=== PATIENT | male | born 1945 | race Caucasian/White ===

== ENCOUNTER → 2018-03-11 07:04 | Outpatient (CLI) | payer MEDICARE, MEDICAID, SELFPAY ==
[2018-03-11 09:07] LABS: Anion Gap 9.3 mmol/L (3-11); CO2 29.7 mmol/L (21.0-32.0); Chloride 105 mmol/L (98-107); Glucose 94 mg/dL (70-100); Potassium 4.8 mmol/L (3.5-5.1); Sodium 144 mmol/L (136-145); Vitamin B12 351 pg/mL (193-986)
[2018-03-14 10:33] LABS: Lyme Ab w Rflx to Lyme Confirm Negative
== END ==
PROVIDERS: PCP General Practice; Visit Provider General Practice
DX: R25.2 Cramp and spasm (principal); G47.62 Sleep related leg cramps; G62.89 Other specified polyneuropathies
CPT/HCPCS: 36415; 80051; 82947; 82607; 83735; 86618

== ENCOUNTER 2019-04-11 12:55 | Outpatient (CLI) | payer MEDICARE, MEDICAID, SELFPAY ==
[2019-04-11 13:39] LABS: Bilirubin Negative (Negative); Blood Negative (Negative); Clarity Clear (Clear); Glucose Negative (Negative); Ketones Negative (Negative); Leukocyte Esterase Negative (Negative); Nitrite Negative (Negative); Specific Gravity 1.015 (1.005-1.025); Urobilinogen 0.2 EU/dL (Up TO 0.2); pH 6.5 (5-8)
== END 2019-04-11 13:15 ==
PROVIDERS: PCP General Practice; Visit Provider General Practice
DX: R30.0 Dysuria (principal)
CPT/HCPCS: 81003

== ENCOUNTER 2020-01-22 07:56 | Emergency (ER) | payer MEDICARE, MEDICAID, SELFPAY ==
[2020-01-22 08:04] VITALS: BP 126/73; PULSE 66; RESP 16; TEMP 36.4; O2SAT 98
--- NOTE | 2020-01-22 08:42 | W.ED.GENAD ---
Discharge Plan Disposition Patient Disposition: HOME Condition: Stable Discharge Details Chief Complaint: RashLesion Clinical Impression: Tick bite, Hematuria, Edema, peripheral Primary Care Provider: Unknown,Unknown ED Provider: Micki Rosenthal Home Meds and New Rx's Prescriptions: Continued albuterol sulfate 8.5 GM HFA aerosol inhaler 2 puff Inhalation PRN PRNRF: 0 Atrovent HFA 1 PUFF HFA aerosol inhaler 2 puff Inhalation PRN PRNRF: 0 Vitamin B-12 1,000 MCG/ML drops RF: 0 Fd-D7-dbf-mfhq-bcm-bdis-bor 1 EACH tablet 1 ea PO DAILY Qty: 100 RF: 0 Trelegy Ellipta 100-62.5-25 mcg blister with device INHALATION RF: 0 Discharge Instructions Instructions: Tick Bite (ED), Hematuria (ED), Leg Edema (ED) Additional Instructions: Please return immediately to the emergency department if you develop any new or worsening symptoms, if your condition does not improve as expected, or if you become otherwise concerned. It is extremely important that you call soon as possible to make an appointment to be seen in follow-up for this visit by your primary care doctor. Discharge Data Discharge Date/Time-TO BE ENTERED AT DEPARTURE: 01/22/20 09:30 Medical Decision Making Yoshi Turcios is a 74 y/o man who presented to the emergency department for tick bites. On exam Pt is well and non-toxic appearing. small area of erythema right clavicle at site of one tick bite, 3cm target lesion left post calf at site of other tick bite. No foreign bodies, no induration, no TTP, no other rash. Mild lateral TTP right knee, otherwise normal knee exam. Concern for exposure to tick borne illness. Unclear etiology of knee pain, possibly lyme vs arthritis vs other. Unclear etiology of mild intermittent hematuria in setting of no dysuria, fever, abdominal pain, flank pain. Possible UTI vs neoplasm vs other. Exam/hx not c/w sepsis, septic arthritis, ureterolithiasis, other acute emergent life threatening process. Target lesion at site of tick bite unlikely to represent lyme given timing, however concern that Pt have contracted lyme/other tick borne illness from multiple other tick bites. Will hold prophylaxis at this time, send tick panel. Plan for screening labs and EKG. EKG and labs non-actionable. UA borderline, without overt UTI symptoms will hold abx pending culture. I had a lengthy discussion with Pt re: in case of negative tick panel, Pt should be retested in 2-3 weeks given multiple new tick bites in last few days. I had a lengthy discussion with Patient regarding return to emergency department precautions, home care, and importance of outpatient follow-up for hematuria, tick bites, peripheral edema, knee pain, and follow-up on eval performed today. Pt verbalizes understanding of the plan and is amenable. Patient discharged to home with clear plan for outpatient follow-up. All questions were answered. Disposition decision was made weighing the risks and benefits of hospitalization versus outpatient treatment, the risk for further decompensation, and the patient's wishes. Medical Records Medical records reviewed: Yes I reviewed the patient's medical records. Lab Data Lab results reviewed: Yes I reviewed the patient's lab results. Labs: 01/22/20 08:45 Urine - Reflex from Ua Urine Culture - Preliminary Laboratory Tests Range/Units 01/22/20 01/22/20 01/22/20 08:40 08:40 08:40 WBC (4.4-10.8) k/cumm 8.08 RBC (4.50-6.00) m/cumm 5.26 Hgb (13.5-17.5) g/dL 15.8 Hct (40.0-50.0) % 48.5 MCV (80-95) fL 92.2 MCH (27.0-33.0) pg 30.0 MCHC (32.0-36.0) g/dL 32.6 RDW (11.8-14.1) % 13.7 Plt Count (130-400) x1000/uL 298 MPV (8.0-11.0) fL 9.5 Immature Gran % % 0.1 Neutrophils % 58.3 Lymphocytes % 27.2 Monocytes % 9.5 Eosinophils % 3.7 Basophils % 1.2 Absolute Neutrophils (1.2-6.7) k/cumm 4.70 Absolute Lymphocytes (1.2-3.4) k/cumm 2.20 Absolute Monocytes (0.11-0.7) k/cumm 0.77 H Absolute Eosinophils (0.0-0.7) k/cumm 0.30 Absolute Basophils (0.0-0.2) k/cumm 0.10 Sodium (136-145) mmol/L 140 Potassium (3.5-5.1) mmol/L 4.4 Chloride (98-107) mmol/L 105 Carbon Dioxide (21.0-32.0) mmol/L 27.3 Anion Gap (3-11) mmol/L 7.7 BUN (7-18) mg/dL 16 Creatinine (0.70-1.30) mg/dL 1.06 Estimated GFR/1.73 m2 (mL/min/1.73m2) >= 60.00 Glucose (74-106) mg/dL 110 H Calcium (8.5-10.1) mg/dL 8.3 L Total Bilirubin (0.2-1.0) mg/dL 0.6 AST (15-37) U/L 29 ALT (16-63) U/L 44 Alkaline Phosphatase (46-116) U/L 110 Total Protein (6.4-8.2) g/dL 7.0 Albumin (3.4-5.0) g/dL 3.9 Urine Color (Yellow) Urine Clarity (Clear) Urine pH (5-8) Ur Specific Cordell (1.005-1.025) Urine Protein (Negative) mg/dL Urine Ketones (Negative) mg/dL Urine Blood (Negative) Urine Nitrite (Negative) Urine Bilirubin (Negative) Urine Urobilinogen (Up TO 0.2) EU/dL Ur Leukocyte Esterase (Negative) Urine RBC (0-2) HPF Urine WBC (0-5) HPF Ur Epithelial Cells (Negative) HPF Urine Crystals (Negative) HPF Urine Bacteria (Negative) HPF Urine Casts (Negative) LPF Urine Mucus (Negative) Ur Culture Indicated? Urine Glucose (Negative) mg/dL Lyme Disease Antibody (Negative) Negative Range/Units 01/22/20 08:45 WBC (4.4-10.8) k/cumm RBC (4.50-6.00) m/cumm Hgb (13.5-17.5) g/dL Hct (40.0-50.0) % MCV (80-95) fL MCH (27.0-33.0) pg MCHC (32.0-36.0) g/dL RDW (11.8-14.1) % Plt Count (130-400) x1000/uL MPV (8.0-11.0) fL Immature Gran % % Neutrophils % Lymphocytes % Monocytes % Eosinophils % Basophils % Absolute Neutrophils (1.2-6.7) k/cumm Absolute Lymphocytes (1.2-3.4) k/cumm Absolute Monocytes (0.11-0.7) k/cumm Absolute Eosinophils (0.0-0.7) k/cumm Absolute Basophils (0.0-0.2) k/cumm Sodium (136-145) mmol/L Potassium (3.5-5.1) mmol/L Chloride (98-107) mmol/L Carbon Dioxide (21.0-32.0) mmol/L Anion Gap (3-11) mmol/L BUN (7-18) mg/dL Creatinine (0.70-1.30) mg/dL Estimated GFR/1.73 m2 (mL/min/1.73m2) Glucose (74-106) mg/dL Calcium (8.5-10.1) mg/dL Total Bilirubin (0.2-1.0) mg/dL AST (15-37) U/L ALT (16-63) U/L Alkaline Phosphatase (46-116) U/L Total Protein (6.4-8.2) g/dL Albumin (3.4-5.0) g/dL Urine Color (Yellow) Yellow Urine Clarity (Clear) Clear Urine pH (5-8) 6.0 Ur Specific Cordell (1.005-1.025) 1.025 Urine Protein (Negative) mg/dL Negative Urine Ketones (Negative) mg/dL Negative Urine Blood (Negative) Trace-intact H Urine Nitrite (Negative) Negative Urine Bilirubin (Negative) Negative Urine Urobilinogen (Up TO 0.2) EU/dL 0.2 Ur Leukocyte Esterase (Negative) Trace H Urine RBC (0-2) HPF 0-2 Urine WBC (0-5) HPF 3-5 Ur Epithelial Cells (Negative) HPF Rare Urine Crystals (Negative) HPF Negative Urine Bacteria (Negative) HPF Rare Urine Casts (Negative) LPF Negative Urine Mucus (Negative) Trace Ur Culture Indicated? Yes Urine Glucose (Negative) mg/dL Negative Lyme Disease Antibody (Negative) ECG Data Attestation: I personally reviewed and interpreted this ECG (s) as follows: Interpretation: EKG shows sinus rhythm at 60, right axis, nonspecific T wave flattening, nondiagnostic EKG HPI General Mode of arrival: ambulatory. Date/Time Provider Initiated Documentation: 01/22/20 08:09. Limitations to Documentation: no limitations. Information obtained by: patient, RN notes reviewed and old records reviewed. HPI Narrative: Yoshi Turcios is a 74-year-old man with a history of COPD presenting to the emergency department with tick bites. Patient is accompanied by his who also provides a history. They report that this morning they noticed take patient's left posterior calf and also over his right collarbone. Patient's reports that she removed both easily. She brings those 2 takes in a cup of alcohol, along with 2 other ticks that she pulled off of the patient recently. Patient reports that he came to the emergency department because he noticed what looked like a bull's-eye rash around that site of the tick bite on his leg. Patient reports that he has no pain other than some right knee pain that has been going on for the last several days and is mild, does not limit his activities. He also reports that he has had swelling of both feet at night over the past few weeks recently and mild hematuria intermittently over the past month. Patient reports that he was told by his PCP that he should be checking his blood sugar, although he is not sure how to do that and does not have a glucometer. He denies any other pain, fevers, cough, shortness of breath, vomiting, diarrhea, other skin rash. Patient reports that he feels generally well in his usual state of health. He has been eating and drinking as usual. Related Data Home Medications Medication Instructions Recorded Confirmed Atrovent HFA 2 puff INHALATION PRN PRN 05/28/13 01/22/20 Vitamin B-12 05/28/13 05/28/13 albuterol sulfate 2 puff INHALATION PRN PRN 05/28/13 01/22/20 Td-F8-xpq-ayzx-yqj-bfad-bor 1 ea PO DAILY #100 tablet 05/29/13 01/22/20 Trelegy Ellipta INHALATION 01/22/20 Previous Rx's Medication Instructions Recorded Do-R4-eue-jdul-ufl-vobb-bor 1 ea PO DAILY #100 tablet 05/29/13 Allergies Allergy/AdvReac Type Severity Reaction Status Date / Time erythromycin base AdvReac Intermediate Nausea Unverified 01/22/20 08:08 [Erythromycin Base] General Stated Complaint: RashLesion ASH: 4 Review of Systems Narrative: Constitutional: denies fevers Eyes: denies eye pain ENT: denies ear pain, dental pain, sore throat Cardiovascular: denies chest pain Respiratory: denies SOB, cough GI: denies abdominal pain, vomiting, diarrhea : denies flank pain MSK: denies back pain, neck pain, myalgias, reports right knee pain Skin: reports leg rash as per HPI Neuro: denies headaches, numbness, weakness PFSH Medical History COPD (chronic obstructive pulmonary disease) Surgical History (Updated 05/18/18 @ 14:36 by [employer] [place]) Colonoscopy - IV Sedation Repair of inguinal hernia Right Social History Smoking/Tobacco Use Status: Current every day Tobacco Type: cigarettes Alcohol Intake: never Drug use: Never Exam Narrative Exam Narrative: Constitutional: well and [id number], pleasant, conversing normally HENT: head atraumatic/normocephalic/normal inspection, mucous membranes moist Eyes: conjunctiva normal, sclera normal, pupils 3mm b/l Neck: no stridor, normal ROM, trachea midline Chest: 1cm area of erythema just superior to mid right clavicle, non-tender, no drainage, no foreign body Resp: normal work of breathing Cardio: normal rate, normal rhythm Skin: warm, dry, normal color, no rash Neuro: alert, not altered, grossly non-focal, normal tone Ext: no edema, no calf TTP, left posterior calf with 3cm target lesion (Pt reports tick was attached at center [facility] when tick was removed). Right knee TTP over lateral aspect of joint, no effusion or overlying skin changes, full ROM, minimally tender in area of pain, no other TTP of knee including popliteal region Psych: normal mood, normal affect, normal behavior Course Vital Signs Vital signs: Vital Signs Temperature 36.4 C L 01/22/20 08:04 Pulse 66 01/22/20 08:04 Respiratory Rate 16 01/22/20 08:04 Blood Pressure 126/73 01/22/20 08:04 Pulse Oximetry 98 01/22/20 08:04 Temperature 36.4 C L 01/22/20 08:04 Temperature Source Skin 01/22/20 08:04 Pulse 66 01/22/20 08:04 Respiratory Rate 16 01/22/20 08:04 Respiratory Effort 01/22/20 08:04 Blood Pressure 126/73 01/22/20 08:04 Blood Pressure Position Sitting 01/22/20 08:04 Pulse Oximetry 98 01/22/20 08:04 Oxygen Delivery Method Room Air 01/22/20 08:04 Oxygen Flow Rate 0 01/22/20 08:04 Pain Level 0 01/22/20 08:04
[2020-01-22 08:57] LABS: Abs Immature Grans 0.01 k/cumm (0.0-0.09); Absolute Monocyte Count 0.77 k/cumm (0.11-0.7); Basophils % 1.2; Eosinophils % 3.7; HCT 48.5 % (40.0-50.0); HGB 15.8 g/dL (13.5-17.5); Immature Grans % 0.1 %; Lymphocytes % 27.2; Mean Corp. HGB Concentration 32.6 g/dL (32.0-36.0); Mean Corpuscular Volume 92.2 fL (80-95); Mean Platelet Volume 9.5 fL (8.0-11.0); Monocytes % 9.5; Neutrophils % 58.3; Platelet Count 298 x1000/uL (130-400); RBC 5.26 m/cumm (4.50-6.00); RBC Distribution Width 13.7 % (11.8-14.1); White Blood Cell Count 8.08 k/cumm (4.4-10.8)
[2020-01-22 08:57] LABS: Bilirubin Negative (Negative); Blood Trace-intact (Negative); Clarity Clear (Clear); Glucose Negative (Negative); Ketones Negative (Negative); Leukocyte Esterase Trace (Negative); Nitrite Negative (Negative); Specific Gravity 1.025 (1.005-1.025); Urobilinogen 0.2 EU/dL (Up TO 0.2)
[2020-01-22 09:09] LABS: ALT 44 U/L (16-63); AST 29 U/L (15-37); Albumin 3.9 g/dL (3.4-5.0); Alkaline Phosphatase 110 U/L (46-116); Anion Gap 7.7 mmol/L (3-11); BUN 16 mg/dL (7-18); Bilirubin, Total 0.6 mg/dL (0.2-1.0); CO2 27.3 mmol/L (21.0-32.0); CREATININE 1.06 mg/dL (0.70-1.30); Calcium 8.3 mg/dL (8.5-10.1); Chloride 105 mmol/L (98-107); Glucose 110 mg/dL (74-106); Potassium 4.4 mmol/L (3.5-5.1); Sodium 140 mmol/L (136-145)
[2020-01-22 09:10] LABS: Bacteria Rare HPF (Negative); C & S Indicated? Yes; Casts Negative LPF (Negative); Crystals Negative HPF (Negative); Epithelial Cells Rare HPF (Negative); Mucus Trace (Negative); RBC 0-2 HPF (0-2)
[2020-01-23 12:09] LABS: Lyme Ab w Rflx to Lyme Confirm Negative (Negative)
[2020-01-23 23:29] LABS: Anaplasma phagocytophilum Negative (Negative); B. miyamotoi PCR Negative (Negative); Babesia divergens/MO-1 Negative (Negative); Babesia duncani Negative (Negative); Babesia microti Negative (Negative); Ehrlichia chaffeensis Negative (Negative); Ehrlichia ewingii/canis Negative (Negative); Ehrlichia muris eauclairensis Negative (Negative)
== END 2020-01-22 09:30 | disposition home or self-care (01) ==
PROVIDERS: Emergency Provider Student in an Organized Health Care Education/Training Program
DX: S80.862A Insect bite (nonvenomous), left lower leg, initial encounter (principal); S10.86XA Insect bite of other specified part of neck, initial encounter; W57.XXXA Bitten or stung by nonvenomous insect and other nonvenomous arthropods, initial encounter; R31.9 Hematuria, unspecified; R60.0 Localized edema; J44.9 Chronic obstructive pulmonary disease, unspecified; F17.210 Nicotine dependence, cigarettes, uncomplicated
CPT/HCPCS: 36415; 80053; 87798; 99284; 81003; 81015; 85025; 86618; 87086

== ENCOUNTER 2020-10-18 12:16 | Emergency (ER) | payer MEDICARE, MEDICAID, SELFPAY ==
[2020-10-18 12:26] VITALS: BP 133/69; PULSE 74; RESP 16; TEMP 36.3; O2SAT 95
--- NOTE | 2020-10-18 12:30 | DI.RAD_ITS ---
EXAM: XR KNEE RT 3V AP,LAT,JARETH CLINICAL HISTORY: one week pain. TECHNIQUE: 2D digital imaging was performed. COMPARISON: No exams were available for comparison FINDINGS: BONES: No acute fracture is present. No bony destructive lesion is seen. Enthesophyte is seen at th e upper pole of the patella. JOINTS: The knee is normally aligned. A moderate-sized joint effusion is seen. Chondrocalcinosis is seen. SOFT TISSUE: Normal. IMPRESSION: Joint effusion.. DATA REPOSITORY: RADIATION DOSE DELIVERED:
--- NOTE | 2020-10-18 12:41 | ED.GENADUL_ITS ---
Discharge Plan Disposition Patient Disposition: HOME Condition: Stable Discharge Details Clinical Impression: Knee pain, right, Arthritis Primary Care Provider: Levar Ring ED Provider: Fredi Ch Home Meds and New Rx's Prescriptions: New prednisone 20 mg tablet 60 mg PO DAILY 5 Days Qty: 15 RF: 0 Continued albuterol sulfate 8.5 GM HFA aerosol inhaler 2 puff Inhalation PRN PRNRF: 0 Atrovent HFA 1 PUFF HFA aerosol inhaler 2 puff Inhalation PRN PRNRF: 0 Vitamin B-12 1,000 MCG/ML drops PO DAILY RF: 0 Wq-P2-dov-bwwc-wwc-gshh-bor 1 EACH tablet 1 ea PO DAILY Qty: 100 RF: 0 Trelegy Ellipta 100-62.5-25 mcg blister with device 1 inh INHALATION DIRECTED RF: 0 Discharge Instructions Instructions: Knee Pain (ED) Additional Instructions: your xray did not show any broken bones you are being treated for arthritis follow up with your primary care provider within 1-2 weeks if pain continues if severe worsening pain, fevers or sprading redness return to the emergency department Medical Decision Making 75 yo male with hx of copd comes in with right knee pain for a week with no falls or other trauma. Denies fevers, chills, calf pain, dyspnea. He has mild swelling of the anterior right knee with no erythema or warmth and full rom of the knee. Has tenderness to the patella, no posterior leg pain, no calf sweling or tenderness with normal distal senation and pulses. Suspect arthritis and less likely sprain, will obtain xray. Exam and history not consistent with septic joint or dvt at this time. xray negative on my read and remains stable no changes on exam. Suspect arthritis, will have him f/u with his pcp and return precautions given radiology read as joint effusion which fits with arthritis, is walking around in no distress and no significant pain. Differential Diagnosis Differential Diagnosis: strain, arthritis, sprain Imaging Data Radiologic Study: Attestation: I personally reviewed and interpreted this imaging study as follows: Imaging: X-Ray Radiologist's impression: joint effusion HPI General Date/Time Provider Initiated Documentation: 10/18/20 12:22 . Limitations to Documentation: no limitations . Information obtained by: patient . History of Present Illness 75 year old M presents to the emergency department with the chief complaint of right knee pain, described as moderate, Patient started experiencing this week(s) (1) and it has been constant. No relieving factors improve symptom(s), No exacerbating factors reported . Patient did receive the following treatments prior to arrival, NSAID Related Data Home Medications Medication Instructions Recorded Confirmed Atrovent HFA 2 puff INHALATION PRN PRN 05/28/13 10/18/20 Vitamin B-12 ml PO DAILY 05/28/13 05/28/13 albuterol sulfate 2 puff INHALATION PRN PRN 05/28/13 10/18/20 Na-K2-zbe-zbey-txx-yarw-bor 1 ea PO DAILY #100 tablet 05/29/13 10/18/20 Trelegy Ellipta 1 inh INHALATION DIRECTED 01/22/20 10/18/20 prednisone 60 mg PO DAILY 5 Days #15 tab 10/18/20 Previous Rx's Medication Instructions Recorded Iw-U9-txk-vayt-wgo-upif-bor 1 ea PO DAILY #100 tablet 05/29/13 prednisone 60 mg PO DAILY 5 Days #15 tab 10/18/20 Allergies Allergy/AdvReac Type Severity Reaction Status Date / Time erythromycin base AdvReac Intermediate Nausea Unverified 10/18/20 12:31 [Erythromycin Base] General Stated Complaint: Orthopedic ASH: 4 Review of Systems All systems reviewed & are unremarkable except as noted in HPI and below Constitutional Constitutional: Denies chills, Denies fever(s) and Denies weakness Cardiovascular Cardiovascular: Denies chest pain and Denies dyspnea Respiratory Respiratory: Denies cough and Denies dyspnea Gastrointestinal Gastrointestinal: Denies abdominal pain, Denies nausea and Denies vomiting Neurologic Neurologic: Denies weakness Psychiatric Psychiatric: Denies depression [facility] Medical History (Updated 10/18/20 @ 13:19 by Fredi Ch MD) COPD (chronic obstructive pulmonary disease) Surgical History (Updated 05/18/18 @ 14:36 by [facility] [place]) Colonoscopy - IV Sedation Repair of inguinal hernia Right Social History Smoking/Tobacco Use Status: Current every day Tobacco Type: cigarettes Smoking risk assessment performed?: Yes Alcohol Intake: never Drug use: Never Do you feel safe at home: Yes Do you feel safe in your relationship?: Yes Additional Social history: has caregiver does not leave the house Exam Const General: no acute distress Orientation: alert HENMT Head: normal to inspection Ears: external ears normal General nose exam: external nose normal Mouth: moist mucous membranes Eyes General: appearance normal, both eyes and all related structures Neck Neck: normal visual inspection Resp Effort & Inspection: normal respiratory effort and able to speak in complete sentences Cardio Rate: regular rate Skin General skin exam: no rashes or lesions noted Neuro General: patient alert and patient oriented x3 Extrem General: full ROM and capillary refill normal Psych Mental Status: mental status grossly normal Course Vital Signs Vital signs: Vital Signs Temperature 36.3 C L 10/18/20 12:26 Pulse 74 10/18/20 12:26 Respiratory Rate 16 10/18/20 12:26 Blood Pressure 133/69 10/18/20 12:26 Pulse Oximetry 95 10/18/20 12:26 Temperature 36.3 C L 10/18/20 12:26 Temperature Source Skin 10/18/20 12:26 Pulse 74 10/18/20 12:26 Respiratory Rate 16 10/18/20 12:26 Respiratory Effort 10/18/20 12:34 Blood Pressure 133/69 10/18/20 12:26 Blood Pressure Position Sitting 10/18/20 12:26 Pulse Oximetry 95 10/18/20 12:26 Oxygen Delivery Method Room Air 10/18/20 12:26 Oxygen Flow Rate 0 10/18/20 12:26 Pain Level 8 10/18/20 12:26 Comment 10/18/20 12:26
== END 2020-10-18 13:15 | disposition home or self-care (01) ==
PROVIDERS: Emergency Provider Emergency Medicine; PCP Psychiatry & Neurology Neurology
DX: M25.561 Pain in right knee (principal); M17.11 Unilateral primary osteoarthritis, right knee
CPT/HCPCS: 73562; 99283

== ENCOUNTER → 2023-04-21 13:48 | Outpatient (BNVA) | payer MEDICARE, MEDICAID, SELFPAY | PROVIDERS: PCP Psychiatry & Neurology Neurology; Referring Provider Podiatrist; Visit Provider Physical Therapy Assistant | DX: I73.9 Peripheral vascular disease, unspecified (principal) | CPT/HCPCS: 93922 ==

== ENCOUNTER 2023-05-08 09:41 | Emergency (ER) | payer MEDICARE, MEDICAID, SELFPAY ==
[2023-05-08 09:44] VITALS: BP 153/73; PULSE 89; RESP 18; TEMP 36.9; O2SAT 94
--- NOTE | 2023-05-08 10:15 | W.ED.GENAD ---
Discharge Plan Disposition Patient Disposition: Home Discharge Details Clinical Impression: COVID Primary Care Provider: Joshua Dumont ED Provider: Wolfgang Gallardo Home Meds and New Rx's Prescriptions: New benzonatate 100 mg capsule 100 mg PO TID PRN (Reason: cough) Qty: 30 0RF Continued calcium carbonate [Calcium 500] 500 mg calcium (1,250 mg) tablet,chewable 500 mg PO DAILY ascorbic acid (vitamin C) 500 mg capsule 500 mg PO DAILY cholecalciferol (vitamin D3) 25 mcg (1,000 unit) capsule 25 mcg PO DAILY ketoconazole 2 % cream 1 applic topical DAILY 90 Days Qty: 60 0RF Rx Instructions: Apply to toenails once daily albuterol sulfate 8.5 GM HFA aerosol inhaler 2 puff Inhalation PRN PRN Patient Comments: I take them every couple of hours Trelegy Ellipta 100-62.5-25 mcg blister with device 1 inh INHALATION DIRECTED Patient Comments: INHALE 1 PUFF BY MOUTH AND ITL ONCE DAILY (DME) BD Luer-Ammy Syringe 3 mL 23 x 1 syringe MISCELLANEOUS Patient Comments: USE 1 SYRINGE PER MONTH TO INJECT VITAMIN B12 Discharge Instructions Instructions: COVID-19 (Coronavirus Disease 2019) (ED) Additional Instructions: It is very important to stay well-hydrated, get plenty of rest and have proper nutrition/diet. You may continue to take your normally prescribed medication along with the prescribed cough medication as needed for cough. Also you have been given the 5-day viral pack for COVID treatment and take as directed on packaging If you have any new or significant worsening of symptoms feel free to return to the emergency department for reassessment otherwise follow-up with your primary care provider as needed if not improving over the next week. Referrals: Joshua Dumont [Primary Care Provider] - (As needed for reassessment or if not improving in the next week) Discharge Data Discharge Date/Time-TO BE ENTERED AT DEPARTURE: 05/08/23 11:31 Medical Decision Making Patient presenting to the emergency department for chief complaint of cold symptoms. Patient presenting with his niece and they state that yesterday patient started having some nasal congestion, cough, malaise and body aches that started yesterday. This morning patient used a home COVID test and tested positive. Patient does have past medical history of COPD neuro cognition delay. Patient is on 2 inhalers for his COPD. Physical exam shows clear lung sounds but mildly diminished throughout, dry cough, normal cardiac exam, vital signs were reviewed and did show slight hypertension but otherwise patient is afebrile, not tachypneic, not tachycardic, and O2 sat of 94% on room air. I do feel that patient's symptoms are consistent with COVID and I do not feel that retesting needs to be performed. Given patient's age and history of COPD I do believe that Paxlovid would be beneficial. No recent blood work has been performed so we will perform blood work for appropriate dosing of antiviral. Pending results will give patient Tessalon Perles. Reviewed patient's labs which show no severe significant leukocytosis but do show slightly low lymphocytes and elevated monocytes, sodium slightly low on CMP and alk phos slightly elevated 117 otherwise GFR is 76. Given this we will put patient on normal dosing of Paxlovid and prescribed Tessalon Perles for home use otherwise discussed conservative management of symptoms along with return and follow-up precautions. After discussion of diagnosis and plan of care patient and family has no further needs, questions, or concerns and states clear understanding to return to the emergency department for any worsening symptoms. This documentation was generated using [employer] dictation system, please disregard any oddities of phrase or misspellings. Lab Data Lab results reviewed: Yes I reviewed the patient's lab results. HPI General Mode of arrival: ambulatory. Date/Time Provider Initiated Documentation: 05/08/23 09:41. Limitations to Documentation: no limitations. Information obtained by: patient, family and RN notes reviewed. History of Present Illness 77 year old M presents to the emergency department with the chief complaint of Cough, nasal congestion, malaise, described as moderate, Patient started experiencing this day(s) (1) and it has been constant. No exacerbating factors reported . Patient did receive the following treatments prior to arrival, none Related Data Home Medications Medication Instructions Recorded Confirmed albuterol sulfate 90 mcg/actuation 2 puff inhalation PRN PRN 05/28/13 05/08/23 aerosol inhaler fluticasone fur. 100 mcg-umeclid 1 inh inhalation DIRECTED 01/22/20 05/08/23 62.5 mcg-vilant 25 mcg inhalat.powder (Trelegy Ellipta) ascorbic acid (vitamin C) 500 mg 500 mg PO DAILY 03/30/23 05/08/23 capsule calcium carbonate 500 mg calcium 500 mg PO DAILY 03/30/23 05/08/23 (1,250 mg) chewable tablet (Calcium 500) cholecalciferol (vitamin D3) 25 25 mcg PO DAILY 03/30/23 05/08/23 mcg (1,000 unit) capsule ketoconazole 2 % topical cream 1 applic topical DAILY 3 months 03/30/23 05/08/23 #60 grams benzonatate 100 mg capsule 100 mg PO TID PRN cough #30 caps 05/08/23 syringe with needle 3 mL 23 x 1 05/08/23 05/08/23 (BD Luer-Ammy Syringe) Previous Rx's Medication Instructions Recorded ketoconazole 2 % topical cream 1 applic topical DAILY 3 months 03/30/23 #60 grams benzonatate 100 mg capsule 100 mg PO TID PRN cough #30 caps 05/08/23 Allergies Allergy/AdvReac Type Severity Reaction Status Date / Time erythromycin base AdvReac Intermediate Nausea Unverified 05/08/23 09:50 [Erythromycin Base] General Stated Complaint: RespSymp ASH: 3 Review of Systems Constitutional Constitutional: Denies chills, Denies fever(s), Denies headache(s), Reports lethargy and Reports malaise ENT Ears, Nose, Mouth, and Throat: Denies headache(s), Reports nasal congestion, Reports nasal discharge and Denies sore throat Cardiovascular Cardiovascular: Denies chest pain and Denies dyspnea (Unchanged from baseline) Respiratory Respiratory: Reports cough, Denies dyspnea (Unchanged from baseline) and Denies wheezing Gastrointestinal Gastrointestinal: Denies abdominal pain, Denies diarrhea and Denies vomiting Musculoskeletal Musculoskeletal: Reports myalgias Integumentary/Breasts Skin/Breast: Denies rash Neurologic Neurologic: Denies headache(s) Allergic/Immunologic Allergic/Immunologic: Denies wheezing PFSH All Active Problems (Updated 05/08/23 @ 11:16 by Wolfgang Gallardo NP) COVID (Acute) PAD (peripheral artery disease) (Acute) Onychomycosis (Acute) Vitamin B 12 deficiency (Acute) Stage 3 severe COPD by GOLD classification (Acute) Nicotine dependence (Acute) Schizophreniform disorder (Acute) Major neurocognitive disorder (Acute) Neuropathy (Acute) Knee pain, right (Acute) Arthritis (Acute) Medical History Alcohol abuse, in remission COPD (chronic obstructive pulmonary disease) Surgical History Colonoscopy - IV Sedation Repair of inguinal hernia Right Social History Smoking/Tobacco Use Status: Current every day Tobacco Type: cigarettes Years smoked: 65 Smoking risk assessment performed?: Yes Alcohol Intake: never Drug use: Never Substance use type: does not use Current gender identity: male Do you feel safe at home: Yes Do you feel safe in your relationship?: Yes Additional Social history: has caregiver does not leave the house Exam Const General: cooperative, comfortable and no acute distress Orientation: alert and awake [facility] Head: normal to inspection, normocephalic and atraumatic General nose exam: external nose normal Face and sinus: no erythema Neck Neck: normal visual inspection, full ROM, no lymphadenopathy, no meningeal signs, trachea midline and supple Resp Effort & Inspection: normal respiratory effort, able to speak in complete sentences and cough Quality of cough: dry Auscultation: clear to auscultation bilaterally and diminished lung sounds Cardio Rate: regular rate Rhythm: regular rhythm Heart Sounds: S1 normal, S2 normal, normal S1 and S2, no click, no gallops, no murmurs and no rubs Skin General skin exam: no rashes or lesions noted and dry skin (warm) Neuro General: patient alert, patient awake, patient oriented x3, gait normal and moves all extremities Cognition: normal cognition Speech: speech normal Course Vital Signs Vital signs: Vital Signs Temperature 36.9 C 05/08/23 09:44 Pulse 89 05/08/23 09:44 Respiratory Rate 18 05/08/23 09:44 Blood Pressure 153/73 H 05/08/23 09:44 Pulse Oximetry 94 05/08/23 09:44 Temperature 36.9 C 05/08/23 09:44 Temperature Source Skin 05/08/23 09:44 Pulse 89 05/08/23 09:44 Respiratory Rate 18 05/08/23 09:44 Respiratory Effort Normal 05/08/23 09:53 Blood Pressure 153/73 H 05/08/23 09:44 Blood Pressure Position Sitting 05/08/23 09:44 Pulse Oximetry 94 05/08/23 09:44 Oxygen Delivery Method Room Air 05/08/23 09:44 Oxygen Flow Rate 0 05/08/23 09:44 Pain Level 0 05/08/23 09:44
[2023-05-08] MEDS: Benzonatate 100 MG CAP PO (10:30)
[2023-05-08 10:38] LABS: Abs Immature Grans 0.02 10^3/uL (0.0-0.06); Absolute Basophil Count 0.13 10^3/uL (0.0-0.2); Absolute Eosinophil Count 0.18 10^3/uL (0.0-0.7); Absolute Lymphocyte Count 0.85 10^3/uL (1.2-3.4); Absolute Monocyte Count 1.52 10^3/uL (0.1-0.8); Absolute Neutrophil Count 6.07 10^3/uL (1.2-6.7); Basophils % 1.5; Eosinophils % 2.1; HCT 50.4 % (40.0-50.0); HGB 16.2 g/dL (13.5-17.5); Immature Grans % 0.2; Lymphocytes % 9.7; MCH 29.6 pg (27.0-33.0); MCHC 32.1 % (32.0-36.0); MCV 92 fL (80-95); MPV 9.1 fL (8.0-11.0); Monocytes % 17.3; Neutrophils % 69.2; Platelet Count 218 10^3/uL (130-400); RBC 5.48 10^6/uL (4.36-5.78); RDW 12.9 % (11.8-14.1); RDW-SD 44.1 fL; WBC 8.77 10^3/uL (4.4-10.8)
[2023-05-08 10:55] LABS: ALT 42 U/L (16-63); AST 37 U/L (15-37); Albumin 4.2 g/dL (3.4-5.0); Alkaline Phosphatase 117 U/L (46-116); Anion Gap 3.4 mmol/L (3-11); BUN 11 mg/dL (7-18); Bilirubin, Total 0.7 mg/dL (0.2-1.0); CO2 31.6 mmol/L (21.0-32.0); Calcium 9.4 mg/dL (8.5-10.1); Chloride 99 mmol/L (98-107); Estimated GFR 76.56 (mL/min/1.73m2); Glucose 103 mg/dL (74-106); Potassium 4.9 mmol/L (3.5-5.1); Sodium 134 mmol/L (136-145); Total Protein 7.8 g/dL (6.4-8.2)
[2023-05-08 11:05] LABS: Diff Comment Agrees w/ Instrument; RBC Morphology Normal
== END 2023-05-08 11:31 | disposition home or self-care (01) ==
PROVIDERS: Emergency Provider Nurse Practitioner Family; PCP Family Medicine
DX: U07.1 COVID-19 (principal); R05.1 Acute cough; R53.81 Other malaise
CPT/HCPCS: 80053; 99283; 85025; 99284

== ENCOUNTER 2023-07-30 12:29 | Observation (INO) | payer MEDICARE, MEDICAID, SELFPAY ==
[2023-07-30] VITALS (22 sets, daily range): BP systolic 131–176; BP diastolic 72–103; PULSE 66–95; RESP 12–20; TEMP 36–36.8; O2SAT 91–97
--- NOTE | 2023-07-30 12:30 | RT.EKG_ITS ---
APPROVED REPORT Exam: Resting ECG Reason for Exam: Chest pain Patient Location: E HR:62 bpm ECG Measurements Heart Rate 62 AXIS TN 168 P 82 QRSd 122 QRS -124 QT 452 T 74 QTc 455 Conclusion Sinus rhythm...normal P axis, V-rate 60- 99 Atrial premature complex...SV complex w/ short R-R interval IVCD, consider RBBB...QRSd>120mS, terminal axis(90,270) sinus rhythm, normal axis, normal intervals, PAC, non ischemic
--- NOTE | 2023-07-30 13:00 | DI.CT_ITS ---
Exam(s) CT THORAX ABD/PEL CTA EXAM: CT THORAX ABD/PEL CTA CLINICAL HISTORY: chest and abdominal pain, sob. TECHNIQUE: Imaging Protocol: Axial computed tomography images with coronal and sagittal reformatted images were created and reviewed CONTRAST MATERIAL: Intravenous: Omnipaque 350 Contrast volume:100 ml Oral: None COMPARISON: CR CHEST 2 VIEWS PA,LAT from 01/26/2014 FINDINGS: CHEST: AORTA: The ascending thoracic aorta exhibits normal diameter 3.5 cm. The aortic arch also exhibits n ormal diameter as does the descending thoracic aorta. There is no evidence of dissection. No signif icant stenosis at the origin the great vessels off the aortic arch. The left vertebral artery is not ed to originate as an independent vessel off the aortic arch instead of in conventional fashion off o f the left subclavian artery. The abdominal aorta is atherosclerotic and exhibits fusiform infrarenal abdominal aortic aneurysm inf eriorly with maximum measurement of 3.2 cm. There is no aneurysm of the common and external iliac ar teries nor of the common femoral arteries and the visualized proximal SFA arteries are patent. There are no aneurysms of the internal iliac arteries. There is some atherosclerotic involvement of the i liac arteries but without critical stenosis in these vessels nor at the aortic bifurcation. LUNGS: There is nodular infiltrate in the left upper lobe measuring 2 x 1 cm. Requires close follow- up. There is also a 6 millimeter nodule in the superior segment of the left lower lobe. Mild infiltrate is noted in the superior lingular segment of the left lung. There is a large thin-wa lled bulla in the medial aspect of the right lower lobe extending behind the heart. Similar but smal ler finding is seen on the left side. Does not contain fluid nor concerning wall thickening. There are no ominous lung nodules in the right lung. There are no pleural effusions. MEDIASTINUM: There is no hilar nor mediastinal adenopathy. Small 5 millimeter nodule in the left thyr oid lobe has benign appearance. Thyroid gland exhibits normal size. CARDIAC: Heart size is normal. There is no pericardial effusion. AORTA: See above. See above ABDOMEN: There is no ascites. LIVER: There are no focal hepatic lesions nor dilatation of intrahepatic ducts. GALLBLADDER/BILIARY: No obvious gallbladder pathology. The diameter is slightly prominent. PANCREAS: No evidence of significant pancreatic mass, pancreatic calcifications nor peripancreatic fl uid. Pancreatic duct diameter is slightly prominent at the level of the neck measuring 4.5 mm at thi s level. SPLEEN: Spleen is not enlarged. There are no intrasplenic lesions. Splenic and portal veins are smallwood nt. ADRENALS: There are no significant adrenal masses. KIDNEYS: Small benign cyst noted in the inferior pole of the right kidney which measures 1.5 cm. Ansari s not require further workup. No other focal renal findings. No hydronephrosis. No calculi nor hyd ronephrosis. No solid renal masses. ABDOMINAL AORTA: See above LYMPH NODES: There is no retroperitoneal nor para-aortic adenopathy. No obvious mesenteric masses. ABDOMINAL WALL: No evidence of significant anterior abdominal wall hernia. GI: There appears to be an enteritis pattern in the mid small bowel. These bowel loops exhibit upper normal-minimally prominent size measuring up to 2.8 cm. PELVIS: LYMPH NODES: There is no intrapelvic nor inguinal adenopathy. GI: No evidence of appendicitis.Extensive sigmoid diverticulosis. No obvious acute diverticulitis. There also multiple diverticuli in the colon at and below the splenic flexure. URINARY BLADDER: Urinary bladder wall is diffusely thickened. There is a small Hutch diverticulum on the left side. Bladder wall is uniformly mildly thickened. Small Hutch diverticulum on the right s luis angel also noted. Prostate size slightly prominent. Indents the bladder base. REPRODUCTIVE: Prostate size slightly prominent. OSSEOUS: No significant osseous lesions. No fractures IMPRESSION: 1. No evidence of aortic dissection nor pericardial effusion, as per request. 2. Infrarenal abdominal aortic aneurysm with maximum external diameter of 3.2 cm. 3. There is a 2 cm lung nodule in the left upper lobe which requires follow-up to rule out neoplasm. Also smaller 6 mm nodule in the left lung. 4. There is an enteritis pattern in mid small bowel loops. There appears to be sparing of the distal most ileum. 5. Extensive diverticulosis of the descending left colon and sigmoid. No obvious acute diverticulit is. No appendicitis. 6. Thickened urinary bladder wall with bilateral Hutch diverticuli. Called by myself to ER provider. RADIATION DOSE DELIVERED: Total DLP DATA REPOSITORY: All CT scans at this facility are submitted to the National Radiology Data Registry (NRDR) Dose Index Registry (DIR) with the [employer] (ACR). RADIATION OPTIMIZATION: All CT scans at this facility use at least one of these dose optimization te chniques: automated exposure control; mA and/or kV adjustment per patient size (includes targeted exa ms where dose is matched to clinical indication); or iterative reconstruction.
[2023-07-30] MEDS: Albuterol/Ipratropium 3 ML UPD VIAL UPD (13:09)
[2023-07-30] MEDS: methylPREDNISolone SUCC 125 MG VIAL 80 MG IVP (13:12)
[2023-07-30 13:31] LABS: Abs Immature Grans 0.04 10^3/uL (0.0-0.06); Absolute Basophil Count 0.13 10^3/uL (0.0-0.2); Absolute Eosinophil Count 0.19 10^3/uL (0.0-0.7); Absolute Lymphocyte Count 2.74 10^3/uL (1.2-3.4); Absolute Monocyte Count 1.02 10^3/uL (0.1-0.8); Absolute Neutrophil Count 4.65 10^3/uL (1.2-6.7); Basophils % 1.5; Eosinophils % 2.2; HGB 15.1 g/dL (13.5-17.5); Immature Grans % 0.5; Lymphocytes % 31.2; MCH 30.1 pg (27.0-33.0); MCHC 32.8 % (32.0-36.0); MCV 92 fL (80-95); MPV 9.3 fL (8.0-11.0); Monocytes % 11.6; Platelet Count 267 10^3/uL (130-400); RBC 5.02 10^6/uL (4.36-5.78); RDW 13.2 % (11.8-14.1); RDW-SD 44.8 fL; WBC 8.77 10^3/uL (4.4-10.8)
--- NOTE | 2023-07-30 13:45 | RT.EKG_ITS ---
APPROVED REPORT Exam: Resting ECG Reason for Exam: chest pain Patient Location: E HR:65 bpm ECG Measurements Heart Rate 65 AXIS IA 175 P 73 QRSd 125 QRS 140 QT 444 T 57 QTc 461 Conclusion Sinus rhythm...normal P axis, V-rate 60- 99 RBBB and LPFB...QRSd >120mS, axis(90,210) no ST segment or T wave abnormalities to suggest occlusive IL
[2023-07-30 13:47] LABS: Magnesium 2.1 mg/dL (1.8-2.4)
[2023-07-30 13:49] LABS: Troponin I 196 ng/L (<or=60)
[2023-07-30 13:54] LABS: ALT 37 U/L (16-63); AST 22 U/L (15-37); Albumin 3.9 g/dL (3.4-5.0); Alkaline Phosphatase 98 U/L (46-116); Anion Gap 5.3 mmol/L (3-11); BUN 15 mg/dL (7-18); Bilirubin, Total 0.6 mg/dL (0.2-1.0); CO2 30.7 mmol/L (21.0-32.0); CREATININE 0.9 mg/dL (0.70-1.30); Calcium 9.1 mg/dL (8.5-10.1); Chloride 99 mmol/L (98-107); ETHANOL BLOOD < 3.0 mg/dL (<10); Estimated GFR 86.88 (mL/min/1.73m2); Glucose 99 mg/dL (74-106); Potassium 4.3 mmol/L (3.5-5.1); Sodium 135 mmol/L (136-145); TSH (W/Ref FT4) 3.54 uIU/mL (0.36-3.74); Total Protein 7.4 g/dL (6.4-8.2)
[2023-07-30 14:00] LABS: Lipase 27 U/L (16-77)
[2023-07-30] MEDS: Aspirin 81 MG CHEW 324 MG CH (14:02)
[2023-07-30 14:03] LABS: Influenza A PCR Negative (Negative); Influenza B PCR Negative (Negative); RSV PCR Negative (Negative)
[2023-07-30 14:04] LABS: Bilirubin Negative (Negative); Blood Negative (Negative); Clarity Clear (Clear); Glucose Negative (Negative); Ketones Negative (Negative); Leukocyte Esterase Large (Negative); Nitrite Negative (Negative); Specific Gravity 1.015 (1.005-1.025); Urobilinogen 0.2 mg/dL (Up to 0.2); pH 7.5 (5-8)
[2023-07-30 14:05] LABS: COVID-19 PCR Positive (Negative); Source Nasopharynx
[2023-07-30 14:11] LABS: Bacteria Moderate HPF (Negative); Epithelial Cells Few HPF (Negative); RBC 0-2 HPF (0-2); WBC 20-50 HPF (0-5)
[2023-07-30 14:12] LABS: C & S Indicated? Yes; Casts Negative LPF (Negative); Crystals Negative HPF (Negative); Mucus Negative (Negative)
[2023-07-30] MEDS: Normal Saline - Diluent 50 ML VIAL 60 ML IJ (14:17)
[2023-07-30] MEDS: Omnipaque 350 MG/ML 500 ML BTL-Imaging package 125 ML IJ (14:18)
--- NOTE | 2023-07-30 14:37 | ED.GENADUL_ITS ---
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, Lung nodule, multiple, Stage 3 severe COPD by GOLD classification Admit Date/Time: 07/30/23 16:28 Admit Provider: Servando Almeida Attending Provider: Servando Almeida Primary Care Provider: Joshua Dumont ED Provider: Vicki Coronado Discharge Data Discharge Date/Time-TO BE ENTERED AT DEPARTURE: 07/30/23 17:15 Medical Decision Making This 77-year-old male presents with multiple complaints including chest pain with some mild increase in shortness of breath Patient is afebrile and nontoxic, he is speaking in complete sentences, he is wheezy throughout his lung bases Urine is concerning for infection, COVID returns positive, initial troponin 196, possible type II non-ST elevation PA versus myocarditis No history of coronary artery disease, no history of hypertension or hyperlipidemia per patient, longstanding history of COPD Of note, patient became hypoxic to 87 to 88% on room air, not oxygen dependent at baseline, placed on 1 L, 93 to 94% on 1 L, no significant respiratory distress, denies any significant improvement with DuoNeb administration, given Solu-Medrol initially prior to COVID returning positive for treatment for suspected COPD Repeat troponin 187, case discussed with Dr. Tolentino, cardiology, does not recommend heparinization at this time, recommends aspirin and admission for observation Patient has had some intermittent chest pain throughout encounter, no significant distress, but show pressure 150/90 at time of reassessment, does not take blood pressure pressure medication at home, Case discussed with Dr. Nath, will admit for urinary tract infection, COVID-19, acute respiratory failure, and COVID infiltrate Resident does appear initiated, ceftriaxone, administered for UTI HPI General Date/Time Provider Initiated Documentation: 07/30/23 13:00 . HPI Narrative: 77-year-old male with history of peripheral artery disease, nicotine dependence, stage III COPD, neurocognitive disorder, presents with report of increased work of breathing, chest pain, and myalgias, symptoms started approximately 3 days ago. States he has had some intermittent vague chest discomfort which comes and goes. Denies any known fever or chills, lives alone. Denies any calf pain or swelling. Related Data Home Medications Medication Instructions Recorded Confirmed albuterol sulfate 90 mcg/actuation 2 puff inhalation PRN PRN 05/28/13 07/30/23 aerosol inhaler fluticasone fur. 100 mcg-umeclid 1 inh inhalation DIRECTED 01/22/20 07/30/23 62.5 mcg-vilant 25 mcg inhalat.powder (Trelegy Ellipta) ascorbic acid (vitamin C) 500 mg 500 mg PO DAILY 03/30/23 07/30/23 capsule calcium carbonate 500 mg calcium 500 mg PO DAILY 03/30/23 07/30/23 (1,250 mg) chewable tablet (Calcium 500) cholecalciferol (vitamin D3) 25 25 mcg PO DAILY 03/30/23 07/30/23 mcg (1,000 unit) capsule benzonatate 100 mg capsule 100 mg PO TID PRN cough #30 caps 05/08/23 07/30/23 syringe with needle 3 mL 23 x 1 05/08/23 05/08/23 (BD Luer-Ammy Syringe) Previous Rx's Medication Instructions Recorded benzonatate 100 mg capsule 100 mg PO TID PRN cough #30 caps 05/08/23 Allergies Allergy/AdvReac Type Severity Reaction Status Date / Time erythromycin base AdvReac Intermediate Nausea Unverified 07/30/23 12:45 [Erythromycin Base] General Stated Complaint: Nk/Back Pain ASH: 3 PFSH All Active Problems (Updated 07/31/23 @ 08:05 by SHERITA Ruff) UTI (urinary tract infection) (Acute) Acute hypoxic respiratory failure (Acute) Lung nodule, multiple (Acute) Infrarenal abdominal aortic aneurysm (AAA) without rupture (Acute) 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 (Acute) NSTEMI (non-ST elevated myocardial infarction) (Acute) COVID (Acute) PAD (peripheral artery disease) (Acute) Onychomycosis (Acute) Vitamin B 12 deficiency (Acute) Stage 3 severe COPD by GOLD classification (Acute) Nicotine dependence (Acute) Schizophreniform disorder (Acute) Major neurocognitive disorder (Acute) Neuropathy (Acute) Knee pain, right (Acute) Arthritis (Acute) Medical History (Updated 07/31/23 @ 08:05 by SHERITA Ruff) Alcohol abuse, 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 Course Vital Signs Vital signs: Vital Signs Pulse 66 07/30/23 12:41 Respiratory Rate 20 07/30/23 12:41 Blood Pressure 176/98 H 07/30/23 12:41 Pulse Oximetry 96 07/30/23 12:41 Pulse 66 07/30/23 12:41 Respiratory Rate 20 07/30/23 12:41 Respiratory Effort Normal, Non-Labored 07/30/23 12:47 Blood Pressure 176/98 H 07/30/23 12:41 Pulse Oximetry 93 07/30/23 13:09 Oxygen Delivery Method Room Air 07/30/23 13:09 Oxygen Flow Rate 0 07/30/23 13:09 Lab/Test Results Lab/Test Results: 07/30/23 13:50 Urine - Reflex from Ua Urine Culture - Pending Laboratory Tests Range/Units 07/30/23 07/30/23 07/30/23 13:00 13:05 13:50 WBC (4.4-10.8) 10^3/uL 8.77 RBC (4.36-5.78) 10^6/uL 5.02 Hgb (13.5-17.5) g/dL 15.1 Hct (40.0-50.0) % 46.0 MCV (80-95) fL 92 MCH (27.0-33.0) pg 30.1 MCHC (32.0-36.0) % 32.8 RDW (11.8-14.1) % 13.2 Plt Count (130-400) 10^3/uL 267 MPV (8.0-11.0) fL 9.3 Immature Gran % 0.5 Neutrophils % 53.0 Lymphocytes % 31.2 Monocytes % 11.6 Eosinophils % 2.2 Basophils % 1.5 Nucleated RBC % (0.0-0.3) % 0.0 Absolute Neutrophils (1.2-6.7) 10^3/uL 4.65 Absolute Lymphocytes (1.2-3.4) 10^3/uL 2.74 Absolute Monocytes (0.1-0.8) 10^3/uL 1.02 H Absolute Eosinophils (0.0-0.7) 10^3/uL 0.19 Absolute Basophils (0.0-0.2) 10^3/uL 0.13 Sodium (136-145) mmol/L 135 L Potassium (3.5-5.1) mmol/L 4.3 Chloride (98-107) mmol/L 99 Carbon Dioxide (21.0-32.0) mmol/L 30.7 Anion Gap (3-11) mmol/L 5.3 BUN (7-18) mg/dL 15 Creatinine (0.70-1.30) mg/dL 0.9 Est GFR (CKD-EPI 2020) (mL/min/1.73m2) 86.88 Glucose (74-106) mg/dL 99 Calcium (8.5-10.1) mg/dL 9.1 Magnesium (1.8-2.4) mg/dL 2.1 Total Bilirubin (0.2-1.0) mg/dL 0.6 AST (15-37) U/L 22 ALT (16-63) U/L 37 Alkaline Phosphatase (46-116) U/L 98 Troponin I (<or=60) ng/L 196 H* Total Protein (6.4-8.2) g/dL 7.4 Albumin (3.4-5.0) g/dL 3.9 Lipase (16-77) U/L 27 TSH (0.36-3.74) uIU/mL 3.54 Urine Color (Yellow) Yellow Urine Clarity (Clear) Clear Urine pH (5-8) 7.5 Ur Specific [place] (1.005-1.025) 1.015 Urine Protein (Negative) mg/dL Negative Urine Ketones (Negative) mg/dL Negative Urine Blood (Negative) Negative Urine Nitrite (Negative) Negative Urine Bilirubin (Negative) Negative Urine Urobilinogen (Up to 0.2) mg/dL 0.2 Ur Leukocyte Esterase (Negative) Large H Urine RBC (0-2) HPF 0-2 Urine WBC (0-5) HPF 20-50 H Ur Epithelial Cells (Negative) HPF Few Urine Crystals (Negative) HPF Negative Urine Bacteria (Negative) HPF Moderate Urine Casts (Negative) LPF Negative Urine Mucus (Negative) Negative Ur Culture Indicated? Yes Urine Glucose (Negative) mg/dL Negative Ethyl Alcohol (<10) mg/dL < 3.0 COVID-19 Source Nasopharynx SARS-CoV-2 (PCR) (Negative) Positive A Influenza Type A (PCR) (Negative) Negative Influenza Type B (PCR) (Negative) Negative RSV (PCR) (Negative) Negative
[2023-07-30] MEDS: cefTRIAXone 1 GM/50 ML BAG IVPB (15:25)
[2023-07-30] MEDS: Normal Saline 1,000 ML 1000 ML IV (15:26)
[2023-07-30 15:54] LABS: Troponin I 187 ng/L (<or=60)
[2023-07-30] MEDS: REMDESIVIR 200 MG in Normal Saline 250 ML 250 MG IVPB (16:14)
--- NOTE | 2023-07-30 16:43 | W.PM.HP.N ---
Date of service: 07/30/23 Time of Service: 16:43 Assessment and Plan Assessment and plan (1) Acute hypoxic respiratory failure: Status: Acute Assessment and plan: secondary to COPD exacerbation; no evidence for CAP or COVID pneumonia. I am wondering if he does not have chronic hypoxemia from his COPD. He has not been on home oxygen. treat his symptoms w/ oxygen, bronchodilators, steroids, treat COVID infection w/ Remdesivir Professional time spent interviewing and examining patient, discussion of goals of care with hospital team (care management, nursing and consulting professionals) was 60 minutes. (2) COVID: Status: Acute Assessment and plan: incidental finding of COVID infection. No evidence of ground glass pneumonic consolidations on his CTA of his chest. He does have couple of lung nodules including 2 cm nodule in the ASHUTOSH which needs PET/CT and probably bronchoscopy w/ biopsy. He does have underlying COPD and probably has exacerbation of the same. He continues to smoke. Patient will be treated Remdesivir (begun in the ED) his complaints were that of thoracic pain w/ radiation into his left arm and he was diagnosed w/ NSTEMI. Laure West spoke w/ our bank credit card collection clerk about treating his [place] and the bank credit card collection clerk reviewed the case and advised agains sytemic heparin but recommended aspirin, treat the patient's COVID infection and monitor his troponins and clinical response. We will get formal echo on Wednesday. I will treat his COPD w/ MDI bronchodilators, steroids. 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 will make pulmonary referral upon discharge (6) Stage 3 severe COPD by GOLD classification: Status: Acute Assessment and plan: steroids, bronchodilators, oxygen, patient needs to quit smoking he reportedly is down to half a cigarette a day (7) PAD (peripheral artery disease): Status: Acute Assessment and plan: continue aspirin; encourage him to stop smoking (8) Infrarenal abdominal aortic aneurysm (AAA) without rupture: Status: Acute Assessment and plan: 3.2 cm AAA with no dissection; will need follow up every 6 to 12 months (9) Nicotine dependence: Status: Acute Assessment and plan: avoid nicotine replacement in setting of NSTEMI but consider use of Chantrix Qualifiers: Nicotine product type: cigarettes Substance use status: uncomplicated Qualified Code(s): F17.210 - Nicotine dependence, cigarettes, uncomplicated (10) UTI (urinary tract infection): Status: Acute Assessment and plan: Continue Rocephin, check urine cultures Qualifiers: Urinary tract infection type: acute cystitis Hematuria presence: without hematuria Qualified Code(s): N30.00 - Acute cystitis without hematuria History of Present Illness History of Present Illness Chief Complaint: left back/side pain w/ radiation into arm Narrative: 77-year-old male smoker with a history of COPD not oxygen dependent who presented to the emergency department with waxing and waning left-sided chest pain and left arm pain that would only last for a couple of minutes, onset was at 11 AM this. On arrival he was found to be mildly hypoxemic with SpO2 of 87 to 88% on room air. He was not in acute respiratory distress was able to talk in complete sentences but mildly short of breath. He had diffuse wheezing throughout his lungs. He was treated in the emergency room with IV corticosteroids and aerosolized bronchodilators. However nasal swab came back positive for SARS-CoV-2. He reportedly had just recovered from COVID infection about a month ago. Further workup revealed an EKG that showed sinus rhythm with a right bundle branch block and a left posterior fascicular block but no acute ischemic or injury changes and his troponin was noted to be elevated at 196 ng/L and his delta troponin returned at 187. He is currently free of any chest pain or arm pain. He was started on Remdesivir in the emergency room. The physician periodontal assistant in the emergency department spoke with cardiology for advice regarding patient's symptoms of chest pain and elevated troponins. Television Servicer advised against systemic heparinization but recommended aspirin and admission for observation. Patient does admit these had increased cough productive of thick mucus but denies any fevers or chills. CT of his chest was negative for PE and there was no evidence for COVID-pneumonia as there was no evidence for groundglass changes and no segmental or subsegmental infiltrates. However CT of the chest abdomen pelvis did show a 2 cm lung nodule in the left upper lobe and a smaller 6 mm nodule in the left lung. CT of the abdomen suggested an enteritis pattern in his mid small bowel loops extensive diverticulosis of the descending colon but no evidence for diverticulitis. He also was found to have a thickened urinary bladder wall with bladder diverticuli. Of note patient admits that he had symptoms of UTI the last couple days which she had increased urinary frequency and dysuria not associated with any hematuria and not associated with any fevers or rigors. The ED provider did give him a dose of Rocephin 1 g IV for his UTI. Patient is now admitted to the hospital for treatment with Remdesivir for his COVID and to monitor his cardiac rhythm and enzymes as well as treatment of his COPD exacerbation and UTI. 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 (Acute) NSTEMI (non-ST elevated myocardial infarction) (Acute) COVID (Acute) PAD (peripheral artery disease) (Acute) Onychomycosis (Acute) Vitamin B 12 deficiency (Acute) Stage 3 severe COPD by GOLD classification (Acute) Nicotine dependence (Acute) Schizophreniform disorder (Acute) Major neurocognitive disorder (Acute) Neuropathy (Acute) Knee pain, right (Acute) Arthritis (Acute) Medical History (Updated 07/30/23 @ 19:17 by Servando Almeida MD) Alcohol abuse, 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 Meds Allergies and Home Medications Allergies Allergy/AdvReac Type Severity Reaction Status Date / Time erythromycin base AdvReac Intermediate Nausea Unverified 07/30/23 12:45 [Erythromycin Base] Home Medications Medication Instructions Recorded Confirmed Type albuterol sulfate 90 mcg/actuation 2 puff inhalation PRN PRN 05/28/13 07/30/23 History aerosol inhaler fluticasone fur. 100 mcg-umeclid 1 inh inhalation DIRECTED 01/22/20 07/30/23 History 62.5 mcg-vilant 25 mcg inhalat.powder (Trelegy Ellipta) ascorbic acid (vitamin C) 500 mg 500 mg PO DAILY 03/30/23 07/30/23 History capsule calcium carbonate 500 mg calcium 500 mg PO DAILY 03/30/23 07/30/23 History (1,250 mg) chewable tablet (Calcium 500) cholecalciferol (vitamin D3) 25 25 mcg PO DAILY 03/30/23 07/30/23 History mcg (1,000 unit) capsule benzonatate 100 mg capsule 100 mg PO TID PRN cough #30 caps 05/08/23 07/30/23 Rx syringe with needle 3 mL 23 x 1 05/08/23 05/08/23 History (BD Luer-Ammy Syringe) Exam Narrative Exam Narrative: Alert and oriented x4. Patient is very loquacious Neck: Supple, nontender, without thyromegaly or lymphadenopathy or JVD. Normal carotid pulses Lungs: Prolonged expiratory phase with some end expiratory wheezing bilaterally Heart: Regular rate and rhythm without murmur rub or gallop. Normal apical impulse Abdomen: Nondistended, normal bowel sounds, nontender to palpation or percussion, no organomegaly, no bruits, no palpable masses Genitalia and rectal exam: Deferred Extremities: Normal range of motion with normal strength. No peripheral cyanosis or edema. Normal pulses Neurologic: Cranial nerves II through XII grossly within normal limits. Normal strength and sensation over the face trunk and extremities. Results Labs 07/30/23 13:00 07/30/23 13:00 Labs: Laboratory Results - last 24 hr 07/30/23 07/30/23 07/30/23 13:00 13:05 13:50 WBC 8.77 RBC 5.02 Hgb 15.1 Hct 46.0 MCV 92 MCH 30.1 MCHC 32.8 RDW 13.2 Plt Count 267 MPV 9.3 Immature Gran % 0.5 Neutrophils % 53.0 Lymphocytes % 31.2 Monocytes % 11.6 Eosinophils % 2.2 Basophils % 1.5 Nucleated RBC % 0.0 Absolute Neutrophils 4.65 Absolute Lymphocytes 2.74 Absolute Monocytes 1.02 H Absolute Eosinophils 0.19 Absolute Basophils 0.13 Sodium 135 L Potassium 4.3 Chloride 99 Carbon Dioxide 30.7 Anion Gap 5.3 BUN 15 Creatinine 0.9 Est GFR (CKD-EPI 2020) 86.88 Glucose 99 Calcium 9.1 Magnesium 2.1 Total Bilirubin 0.6 AST 22 ALT 37 Alkaline Phosphatase 98 Troponin I 196 H* Total Protein 7.4 Albumin 3.9 Lipase 27 TSH 3.54 Urine Color Yellow Urine Clarity Clear Urine pH 7.5 Ur Specific [place] 1.015 Urine Protein Negative Urine Ketones Negative Urine Blood Negative Urine Nitrite Negative Urine Bilirubin Negative Urine Urobilinogen 0.2 Ur Leukocyte Esterase Large H Urine RBC 0-2 Urine WBC 20-50 H Ur Epithelial Cells Few Urine Crystals Negative Urine Bacteria Moderate Urine Casts Negative Urine Mucus Negative Ur Culture Indicated? Yes Urine Glucose Negative Ethyl Alcohol < 3.0 COVID-19 Source Nasopharynx SARS-CoV-2 (PCR) Positive A Influenza Type A (PCR) Negative Influenza Type B (PCR) Negative RSV (PCR) Negative 07/30/23 15:28 WBC RBC Hgb Hct MCV MCH MCHC RDW Plt Count MPV Immature Gran % Neutrophils % Lymphocytes % Monocytes % Eosinophils % Basophils % Nucleated RBC % Absolute Neutrophils Absolute Lymphocytes Absolute Monocytes Absolute Eosinophils Absolute Basophils Sodium Potassium Chloride Carbon Dioxide Anion Gap BUN Creatinine Est GFR (CKD-EPI 2020) Glucose Calcium Magnesium Total Bilirubin AST ALT Alkaline Phosphatase Troponin I 187 H* Total Protein Albumin Lipase TSH Urine Color Urine Clarity Urine pH Ur Specific [place] Urine Protein Urine Ketones Urine Blood Urine Nitrite Urine Bilirubin Urine Urobilinogen Ur Leukocyte Esterase Urine RBC Urine WBC Ur Epithelial Cells Urine Crystals Urine Bacteria Urine Casts Urine Mucus Ur Culture Indicated? Urine Glucose Ethyl Alcohol COVID-19 Source SARS-CoV-2 (PCR) Influenza Type A (PCR) Influenza Type B (PCR) RSV (PCR) Last Vital Signs Pulse 66 07/30/23 12:41 Resp 20 07/30/23 12:41 BP 176/98 H 07/30/23 12:41 Pulse Ox 93 07/30/23 13:09 Time Spent Time spent with Patient: 55-74 minutes Time was spent: preparing to see the patient(eg.review tests), obtaining and/or reviewing separately otained hiistory, ordering medications,tests, procedures, referring, communicating with other health vision care associate, indepentently interpreting results, counseling the patient and care coordination
[2023-07-30 17:02] LABS: BE (Venous) 2 mmol/L (-2-3); HCO3 (Venous) 27 mmol/L (23-28); O2 Sat (Venous) 86 %; TCO2 (Venous) 24 mmol/L (24-29); pCO2 (Venous) 47 mmHg (41-51); pH (Venous) 7.37 (7.31-7.41); pO2 (Venous) 51 mmHg
[2023-07-30 17:19] LABS: INR 1.2 (0.9-1.1); PTT Activated 27.5 sec (23.6-32.8); Prothrombin Time 11.6 sec (9.1-11.1)
[2023-07-30 17:21] LABS: LDH 147 U/L (85-227)
[2023-07-30 17:35] LABS: D-Dimer 443 ng/mlFEU (<500)
[2023-07-30 17:39] LABS: Procalcitonin < 0.1 ng/mL
[2023-07-30 17:49] LABS: Ferritin 258 ng/mL (26-388)
[2023-07-30] MEDS: Enoxaparin 40 MG/0.4 ML SYR SC (17:49)
[2023-07-30] MEDS: Zinc Sulfate 220 MG TAB PO (17:49)
[2023-07-30] MEDS: Normal Saline Flush 10 ML SYR IVP ×2 (17:49→21:59)
[2023-07-30] MEDS: Cholecalciferol (Vitamin D3) 1,000 UNIT TAB 2000 UNITS PO (17:49)
[2023-07-30 18:08] LABS: NT-proBNP 51 pg/mL (<300)
--- NOTE | 2023-07-30 19:15 | RT.EKG_ITS ---
APPROVED REPORT Exam: Resting ECG Reason for Exam: elevated troponin Patient Location: I HR:54 bpm ECG Measurements Heart Rate 54 AXIS NH 174 P 79 QRSd 123 QRS 144 QT 468 T 70 QTc 444 Conclusion Sinus arrhythmia...V-rate 43- 62, variation>10% Probable left atrial enlargement...P >50mS, <-0.10mV V1 RBBB and LPFB...QRSd >120mS, axis(90,210) I have reviewed and interpreted ECG and agree with software generated interpretation.
[2023-07-30] MEDS: Famotidine 20 MG TAB PO (19:29)
[2023-07-30] MEDS: Atorvastatin 40 MG TAB 80 MG PO (19:29)
[2023-07-30] MEDS: Budesonide/Formoterol 80/4.5 6.9 GM 60 PUFF INH IH (20:04)
[2023-07-30 21:17] LABS: Troponin I 185 ng/L (<or=60)
[2023-07-31 05:09] VITALS: BP 132/72; PULSE 83; RESP 14; TEMP 35.8; O2SAT 94
[2023-07-31 06:27] LABS: Abs Immature Grans 0.04 10^3/uL (0.0-0.06); Absolute Basophil Count 0.03 10^3/uL (0.0-0.2); Absolute Eosinophil Count 0.03 10^3/uL (0.0-0.7); Absolute Lymphocyte Count 1.28 10^3/uL (1.2-3.4); Absolute Monocyte Count 0.48 10^3/uL (0.1-0.8); Absolute Neutrophil Count 6.65 10^3/uL (1.2-6.7); Basophils % 0.4; Eosinophils % 0.4; HCT 45.7 % (40.0-50.0); HGB 14.9 g/dL (13.5-17.5); Immature Grans % 0.5; MCH 29.5 pg (27.0-33.0); MCHC 32.6 % (32.0-36.0); MCV 91 fL (80-95); MPV 9.2 fL (8.0-11.0); Monocytes % 5.6; Neutrophils % 78.1; Platelet Count 249 10^3/uL (130-400); RBC 5.05 10^6/uL (4.36-5.78); RDW 13.1 % (11.8-14.1); RDW-SD 43.9 fL; WBC 8.51 10^3/uL (4.4-10.8)
[2023-07-31 06:51] LABS: Hemoglobin A1C 6.3 % (<5.7)
[2023-07-31 06:52] LABS: ALT 34 U/L (16-63); AST 20 U/L (15-37); Albumin 3.4 g/dL (3.4-5.0); Alkaline Phosphatase 83 U/L (46-116); Anion Gap 4.8 mmol/L (3-11); BUN 13 mg/dL (7-18); Bilirubin, Total 0.6 mg/dL (0.2-1.0); CO2 28.2 mmol/L (21.0-32.0); CREATININE 0.9 mg/dL (0.70-1.30); Calculated LDL 124 mg/dL (<100); Chloride 104 mmol/L (98-107); Cholesterol 200 mg/dL (<200); Estimated GFR 86.88 (mL/min/1.73m2); Glucose 136 mg/dL (74-106); HDL Cholesterol 67 mg/dL (40-60); Magnesium 2.1 mg/dL (1.8-2.4); Potassium 4.4 mmol/L (3.5-5.1); Sodium 137 mmol/L (136-145); Total Protein 6.8 g/dL (6.4-8.2); Triglyceride 48 mg/dL (<150)
[2023-07-31 06:57] LABS: Troponin I 176 ng/L (<or=60)
[2023-07-31 07:29] VITALS: BP 148/76; PULSE 56; RESP 16; TEMP 36.6; O2SAT 96
[2023-07-31] MEDS: Tiotropium Bromide-Respimat 10 PUFF INH 2 PUFF IH (07:58)
[2023-07-31] MEDS: Budesonide/Formoterol 80/4.5 6.9 GM 60 PUFF INH IH ×2 (07:58→21:06)
[2023-07-31] MEDS: Aspirin E.C. 81 MG TABEC PO (08:14)
[2023-07-31] MEDS: Zinc Sulfate 220 MG TAB PO (08:14)
[2023-07-31] MEDS: Famotidine 20 MG TAB PO ×2 (08:14→20:29)
[2023-07-31] MEDS: Ascorbic Acid 500 MG TAB PO (08:14)
[2023-07-31] MEDS: Cholecalciferol (Vitamin D3) 1,000 UNIT TAB 2000 UNITS PO (08:14)
[2023-07-31] MEDS: Normal Saline Flush 10 ML SYR IVP ×2 (08:15→20:29)
[2023-07-31] MEDS: Dexamethasone 10 MG/ML VIAL IVP (08:42)
--- NOTE | 2023-07-31 08:58 | PDOC.CMIN ---
Date of service: 07/31/23 Time of Service: 08:58 Care Management Initial Assmt Initial Assessment REASON FOR HOSPITALIZATION:: Acute respiratory failure; Covid; Nstemi PREVIOUS FUNCTIONAL STATUS/SOCIAL/FAMILY SUPPORTS:: Yoshi lives in [place] with his niece, Carol, who is supportive, and assists with transportation and management of his home and cognitive tasks. Yoshi is independent with his ADL's. CURRENT FUNCTIONAL STATUS:: Yoshi is on covid precautions, therefore CM was unable to meet with him in person. CM attempted to call into his room without success. Per MD, Yoshi is doing well today. He will remain at [facility] to complete a three day course of remdesivir, which will end tomorrow. Anticipate his niece will drive him home when ready. CM will continue to follow. ADVANCE DIRECTIVES:: Not on file; CM will offer forms. Has patient been provided with info about the portal/API?: Yes Did the patient sign up for the portal?: No CODE STATUS:: Full Code INSURANCE COVERAGE / FINANCIAL ISSUES:: [facility]. [place]. CURRENT HOME/COMMUNITY SERVICES/EQUIPMENT:: Yoshi's niece assists him with transportation and management of his home and cognitive tasks. PRIMARY CARE PHYSICIAN:: Joshua Dumont POTENTIAL DISCHARGE NEEDS:: Evaluations for further needs, follow up appointments. PATIENT/FAMILY EDUCATION NEEDS:: Review discharge instructions and limitations, discussion of self care needs including ask me three. ANTICIPATED BARRIERS TO DISCHARGE:: None identified. TRANSPORTATION:: Via private vehicle by his niece. PLAN:: Anticipate Yoshi will return home when medically cleared. His niece will transport him home via private vehicle. He will follow up with his PCP and discharge plan of care. CM will continue to follow. 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 (Acute) NSTEMI (non-ST elevated myocardial infarction) (Acute) COVID (Acute) PAD (peripheral artery disease) (Acute) Onychomycosis (Acute) Vitamin B 12 deficiency (Acute) Stage 3 severe COPD by GOLD classification (Acute) Nicotine dependence (Acute) Schizophreniform disorder (Acute) Major neurocognitive disorder (Acute) Neuropathy (Acute) Knee pain, right (Acute) Arthritis (Acute) Medical History (Updated 07/31/23 @ 08:05 by SHERITA Ruff) Alcohol abuse, 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
[2023-07-31 10:47] VITALS: BP 146/79; PULSE 83; RESP 18; TEMP 36.3; O2SAT 93
--- NOTE | 2023-07-31 10:52 | PGE_ITS ---
Date of Service Date of service: 07/31/23 Time of Service: 10:52 Assessment and Plan Assessment and plan (1) Acute hypoxic respiratory failure: Status: Acute Assessment and plan: He really was not that hypoxic to begin with. His SPO2 was 88% yesterday in the ED. Today his SPO2 is 93%. He is not dyspneic. I think his hypoxia is more COPD exacerbation than d/t COVID. He has no pneumonic consolidation and no ground glass changes on his CT scan. He does have lung nodule 2 cm in the ASHUTOSH which needs followup (also smaller 6 mm nodule in the left lung). I told him about the nodules yesterday during my workup. I think he can complete the 3 days of Remdesivir infusion tomorrow morning and then be dc home w/ follow up stress MPI to evaluate for CAD given his presentation of CP and left arm pain and elevated troponins. He should be referred to pulmonary clinic to follow up on the lung nodules and his COPD. Continue steroids, bronchodilators, currently on Rocephin for UTI, will add doxycycline and upon dc home will send him on 5 day course of doxy. Professional time spent interviewing and examining patient, discussion of goals of care with hospital team (care management, nursing and consulting professionals) was 30 minutes. (2) COVID: Status: Acute Assessment and plan: incidental finding. complete 3 days of outpatient dosing of Remdesivir to lessen his risks for further progression of his COVID-19 infection (3) NSTEMI (non-ST elevated myocardial infarction): Status: Acute Assessment and plan: likely demand ischemia. Cardiology was consulted by the ED provider and did not recommend systemic heparin but recommended ASA. I added atorvastatin to his regimen. 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 will make pulmonary referral upon discharge (6) Stage 3 severe COPD by GOLD classification: Status: Acute Assessment and plan: steroids, bronchodilators, oxygen, patient needs to quit smoking he reportedly is down to half a cigarette a day (7) PAD (peripheral artery disease): Status: Acute Assessment and plan: continue aspirin; encourage him to stop smoking (8) Infrarenal abdominal aortic aneurysm (AAA) without rupture: Status: Acute Assessment and plan: 3.2 cm AAA with no dissection; will need follow up every 6 to 12 months (9) Nicotine dependence: Status: Acute Assessment and plan: avoid nicotine replacement in setting of NSTEMI but consider use of Chantrix Qualifiers: Nicotine product type: cigarettes Substance use status: uncomplicated Qualified Code(s): F17.210 - Nicotine dependence, cigarettes, uncomplicated (10) UTI (urinary tract infection): Status: Acute Assessment and plan: Continue Rocephin, check urine cultures Qualifiers: Urinary tract infection type: acute cystitis Hematuria presence: without hematuria Qualified Code(s): N30.00 - Acute cystitis without hematuria Subjective Subjective Interval history since last seen: Yoshi says he feels fine. No CP and no dyspnea. He does have moist cough. Today is his 2nd day of Remdesivir. He is willing to stay until tomorrow to complete his treatment. I told him that he could benefit from Mucinex or Robitussin for his cough. He indicated to me that he had read that he should not use guafenesin while on bronchodilators. I explained to him that we give Mucinex or Robitussin all the time to patient w/ COPD. Exam Narrative Exam Narrative: Yoshi is off oxygen, he is ambulating in the room w/out any dyspnea or CP. He does have moist cough Lungs: scattered expiratory wheezing Heart: RRR, no murmur or rub Objective Last Vital Signs Temp 36.3 C L 07/31/23 10:47 Pulse 83 07/31/23 10:47 Resp 18 07/31/23 10:47 BP 146/79 H 07/31/23 10:47 Pulse Ox 93 07/31/23 10:47 Laboratory Results - last 24 hr 07/30/23 07/30/23 07/30/23 13:00 13:05 13:50 WBC 8.77 RBC 5.02 Hgb 15.1 Hct 46.0 MCV 92 MCH 30.1 MCHC 32.8 RDW 13.2 Plt Count 267 MPV 9.3 Immature Gran % 0.5 Neutrophils % 53.0 Lymphocytes % 31.2 Monocytes % 11.6 Eosinophils % 2.2 Basophils % 1.5 Nucleated RBC % 0.0 Absolute Neutrophils 4.65 Absolute Lymphocytes 2.74 Absolute Monocytes 1.02 H Absolute Eosinophils 0.19 Absolute Basophils 0.13 PT INR APTT D-Dimer VBG pH VBG pCO2 VBG pO2 VBG HCO3 VBG Total CO2 VBG O2 Saturation VBG Base Excess VBG Lactate Sodium 135 L Potassium 4.3 Chloride 99 Carbon Dioxide 30.7 Anion Gap 5.3 BUN 15 Creatinine 0.9 Est GFR (CKD-EPI 2020) 86.88 Glucose 99 Hemoglobin A1c Calcium 9.1 Magnesium 2.1 Ferritin Total Bilirubin 0.6 AST 22 ALT 37 Alkaline Phosphatase 98 Lactate Dehydrogenase Troponin I 196 H* NT-Pro-B Natriuret Pep Total Protein 7.4 Albumin 3.9 Triglycerides Total Cholesterol LDL Cholesterol, Calc HDL Cholesterol Lipase 27 Procalcitonin TSH 3.54 Urine Color Yellow Urine Clarity Clear Urine pH 7.5 Ur Specific [place] 1.015 Urine Protein Negative Urine Ketones Negative Urine Blood Negative Urine Nitrite Negative Urine Bilirubin Negative Urine Urobilinogen 0.2 Ur Leukocyte Esterase Large H Urine RBC 0-2 Urine WBC 20-50 H Ur Epithelial Cells Few Urine Crystals Negative Urine Bacteria Moderate Urine Casts Negative Urine Mucus Negative Ur Culture Indicated? Yes Urine Glucose Negative Ethyl Alcohol < 3.0 COVID-19 Source Nasopharynx SARS-CoV-2 (PCR) Positive A Influenza Type A (PCR) Negative Influenza Type B (PCR) Negative RSV (PCR) Negative 07/30/23 07/30/23 07/30/23 15:28 16:45 16:54 WBC RBC Hgb Hct MCV MCH MCHC RDW Plt Count MPV Immature Gran % Neutrophils % Lymphocytes % Monocytes % Eosinophils % Basophils % Nucleated RBC % Absolute Neutrophils Absolute Lymphocytes Absolute Monocytes Absolute Eosinophils Absolute Basophils PT 11.6 H INR 1.2 H APTT 27.5 D-Dimer 443 VBG pH 7.37 VBG pCO2 47 VBG pO2 51 VBG HCO3 27 VBG Total CO2 24 VBG O2 Saturation 86 VBG Base Excess 2 VBG Lactate 1.0 Sodium Potassium Chloride Carbon Dioxide Anion Gap BUN Creatinine Est GFR (CKD-EPI 2020) Glucose Hemoglobin A1c Calcium Magnesium Ferritin 258 Total Bilirubin AST ALT Alkaline Phosphatase Lactate Dehydrogenase 147 Troponin I 187 H* NT-Pro-B Natriuret Pep 51 Total Protein Albumin Triglycerides Total Cholesterol LDL Cholesterol, Calc HDL Cholesterol Lipase Procalcitonin < 0.1 TSH Urine Color Urine Clarity Urine pH Ur Specific [place] Urine Protein Urine Ketones Urine Blood Urine Nitrite Urine Bilirubin Urine Urobilinogen Ur Leukocyte Esterase Urine RBC Urine WBC Ur Epithelial Cells Urine Crystals Urine Bacteria Urine Casts Urine Mucus Ur Culture Indicated? Urine Glucose Ethyl Alcohol COVID-19 Source SARS-CoV-2 (PCR) Influenza Type A (PCR) Influenza Type B (PCR) RSV (PCR) 07/30/23 07/31/23 20:40 06:17 WBC 8.51 RBC 5.05 Hgb 14.9 Hct 45.7 MCV 91 MCH 29.5 MCHC 32.6 RDW 13.1 Plt Count 249 MPV 9.2 Immature Gran % 0.5 Neutrophils % 78.1 Lymphocytes % 15.0 Monocytes % 5.6 Eosinophils % 0.4 Basophils % 0.4 Nucleated RBC % 0.0 Absolute Neutrophils 6.65 Absolute Lymphocytes 1.28 Absolute Monocytes 0.48 Absolute Eosinophils 0.03 Absolute Basophils 0.03 PT INR APTT D-Dimer VBG pH VBG pCO2 VBG pO2 VBG HCO3 VBG Total CO2 VBG O2 Saturation VBG Base Excess VBG Lactate Sodium 137 Potassium 4.4 Chloride 104 Carbon Dioxide 28.2 Anion Gap 4.8 BUN 13 Creatinine 0.9 Est GFR (CKD-EPI 2020) 86.88 Glucose 136 H Hemoglobin A1c 6.3 H Calcium 9.0 Magnesium 2.1 Ferritin Total Bilirubin 0.6 AST 20 ALT 34 Alkaline Phosphatase 83 Lactate Dehydrogenase Troponin I 185 H* 176 H* NT-Pro-B Natriuret Pep Total Protein 6.8 Albumin 3.4 Triglycerides 48 Total Cholesterol 200 LDL Cholesterol, Calc 124 H HDL Cholesterol 67 Lipase Procalcitonin TSH Urine Color Urine Clarity Urine pH Ur Specific [place] Urine Protein Urine Ketones Urine Blood Urine Nitrite Urine Bilirubin Urine Urobilinogen Ur Leukocyte Esterase Urine RBC Urine WBC Ur Epithelial Cells Urine Crystals Urine Bacteria Urine Casts Urine Mucus Ur Culture Indicated? Urine Glucose Ethyl Alcohol COVID-19 Source SARS-CoV-2 (PCR) Influenza Type A (PCR) Influenza Type B (PCR) RSV (PCR) Time Spent with Patient Time Spent with Patient: 25-34 minutes Time was spent: preparing to see the patient(eg.review tests), ordering medications,tests, procedures, referring, communicating with other health auto care center manager, indepentently interpreting results, counseling the patient and care coordination
[2023-07-31] MEDS: REMDESIVIR 100 MG in Normal Saline 250 ML 250 MG IVPB (12:09)
[2023-07-31] MEDS: Doxycycline Hyclate 100 MG CAP PO ×2 (12:22→22:13)
[2023-07-31] MEDS: cefTRIAXone 1 GM/50 ML BAG IVPB (13:44)
[2023-07-31 15:21] VITALS: BP 143/83; PULSE 83; RESP 16; TEMP 36.7; O2SAT 98
[2023-07-31] MEDS: Enoxaparin 40 MG/0.4 ML SYR SC (17:39)
[2023-07-31] MEDS: Atorvastatin 40 MG TAB 80 MG PO (20:29)
[2023-07-31 20:54] VITALS: BP 149/79; PULSE 70; RESP 14; TEMP 35.6; O2SAT 94
[2023-07-31 22:44] VITALS: BP 130/80; PULSE 72; RESP 14; TEMP 35.9; O2SAT 95
[2023-08-01 05:04] VITALS: BP 117/54; PULSE 53; RESP 16; TEMP 36.1; O2SAT 94
[2023-08-01 07:42] VITALS: BP 130/72; PULSE 59; RESP 16; TEMP 36; O2SAT 95
[2023-08-01] MEDS: Budesonide/Formoterol 80/4.5 6.9 GM 60 PUFF INH IH (07:46)
[2023-08-01] MEDS: Tiotropium Bromide-Respimat 10 PUFF INH 2 PUFF IH (07:46)
[2023-08-01 07:47] VITALS: O2SAT 95
[2023-08-01] MEDS: Normal Saline Flush 10 ML SYR IVP (08:59)
[2023-08-01] MEDS: Aspirin E.C. 81 MG TABEC PO (09:00)
[2023-08-01] MEDS: Zinc Sulfate 220 MG TAB PO (09:00)
[2023-08-01] MEDS: predniSONE 20 MG TAB 40 MG PO (09:01)
[2023-08-01] MEDS: Famotidine 20 MG TAB PO (09:01)
[2023-08-01] MEDS: Cholecalciferol (Vitamin D3) 1,000 UNIT TAB 2000 UNITS PO (09:02)
[2023-08-01] MEDS: Ascorbic Acid 500 MG TAB PO (09:02)
[2023-08-01] MEDS: REMDESIVIR 100 MG in Normal Saline 250 ML 250 MG IVPB (09:03)
--- NOTE | 2023-08-01 09:19 | W.PM.DS.N ---
Date of service: 08/01/23 Time of Service: 09:19 DS: Diagnosis Discharge Diagnosis (1) Acute hypoxic respiratory failure: Status: Acute Asessment and Plan: Patient initially admitted with acute hypoxic respiratory failure thought to be secondary to combination of COPD and COVID. However, it appears more to be COPD as there is no groundglass opacities on imaging. However, patient did complete 3-day course of remdesivir during hospitalization, and has remained on room air for about 36 hours prior to discharge. He was also recommended that he has drop hammer operator helper follow-up at discharge. 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: Status: Acute (5) Lung nodule, multiple: Status: Acute (6) Stage 3 severe COPD by GOLD classification: Status: Acute (7) PAD (peripheral artery disease): Status: Acute (8) Infrarenal abdominal aortic aneurysm (AAA) without rupture: Status: Acute (9) Nicotine dependence: Status: Acute (10) UTI (urinary tract infection): Status: Acute Discharge Plan Disposition Patient Disposition: Home Condition: Good Discharge Details Reason For Visit: acute hypoxemic respiratory failure, COVID infecti Admit Date/Time: 07/30/23 16:28 Admit Provider: Servando Almeida Attending Provider: Servadno Almeida Primary Care Provider: Joshua Dumont Hospital Course Hospital Course: Patient initially admitted with acute hypoxic respiratory failure thought to be secondary to combination of COPD and COVID. However, it appears more to be COPD as there is no groundglass opacities on imaging. However, patient did complete 3-day course of remdesivir during hospitalization, and has remained on room air for about 36 hours prior to discharge. He was also recommended that he has drop hammer operator helper follow-up at discharge. Home Meds and New Rx's Prescriptions: New atorvastatin 40 mg Tablet 80 mg PO QPM Qty: 90 0RF doxycycline hyclate 100 mg Capsule 100 mg PO BID Qty: 6 0RF prednisone 20 mg Tablet 40 mg PO DAILY 3 Days Qty: 6 0RF Continued ascorbic acid (vitamin C) 500 mg capsule 500 mg PO DAILY cholecalciferol (vitamin D3) 25 mcg (1,000 unit) capsule 25 mcg PO DAILY albuterol sulfate 8.5 GM HFA aerosol inhaler 2 puff Inhalation PRN PRN Patient Comments: I take them every couple of hours Trelegy Ellipta 100-62.5-25 mcg blister with device 1 inh INHALATION DIRECTED Patient Comments: INHALE 1 PUFF BY MOUTH AND ITL ONCE DAILY (DME) BD Luer-Ammy Syringe 3 mL 23 x 1 syringe MISCELLANEOUS Patient Comments: USE 1 SYRINGE PER MONTH TO INJECT VITAMIN B12 benzonatate 100 mg capsule 100 mg PO TID PRN (Reason: cough) Qty: 30 0RF Discontinued calcium carbonate [Calcium 500] 500 mg calcium (1,250 mg) tablet,chewable 500 mg PO DAILY Discharge Instructions Instructions: COPD (Chronic Obstructive Pulmonary Disease) (DC), Chronic Lung Disease and Infection Prevention (DC), COVID-19 (Coronavirus Disease 2019) (DC) Activity:: Activity as Tolerated Equipment/Supplies:: No Equipment Needed Diet:: As Tolerated Discharge Orders Discharge Orders: Discharge Order (Routine); Ordered 08/01/23 Ordered By: Jey Polanco DS: Summary Time Spent with Patient providing and/or coordinating discharge services: Greater than 30 minutes Status at Discharge Functional status at discharge: independent ambulation Overall status at discharge: patient is back to baseline Mental Status: mental status grossly normal Speech and Movement: speech and movement normal Mood: congruent mood Affect: normal affect Exam Narrative Exam Narrative: Well-appearing older gentleman sitting up on the edge of the bed no acute distress, ANO x 4, heart regular rhythm, lungs clear to auscultation bilaterally, abdomen soft, nontender nondistended Psych Mental Status: mental status grossly normal Speech and Movement: speech and movement normal Mood: congruent mood Affect: normal affect DS: Data Vitals/I&O Vitals and I&O: Vital Signs Temperature 96.8 F L 08/01/23 07:42 Temperature Source Tympanic 08/01/23 07:42 Pulse 59 L 08/01/23 07:42 Pulse Rhythm Regular 07/31/23 23:04 Pulse 86 07/30/23 16:31 Respiratory Rate 16 08/01/23 07:42 Respiratory Effort Normal, Non-Labored 07/31/23 23:04 Respiratory Depth Normal 07/31/23 23:04 Respiratory Pattern Normal 07/31/23 23:04 Blood Pressure 130/72 08/01/23 07:42 Blood Pressure Mean 117 07/30/23 17:01 Pulse Oximetry 95 08/01/23 07:47 Oxygen Delivery Method Room Air 08/01/23 07:47 Oxygen Flow Rate 0 08/01/23 07:47 Pain Level 0 08/01/23 07:42 Comment RN informed of BP 07/31/23 07:29 Intake & Output 07/31/23 08/01/23 08/01/23 17:59 05:59 17:59 Intake Total 1330 / 1330 Output Total 900 / 900 200 / 1100 Balance 430 / 430 -200 / 230 Weight 190 lb 11.198 oz Intake: IV 330 / 330 Oral 1000 / 1000 Output: Urine 900 / 900 200 / 1100 Other: Urine Color Yellow Yellow Urine Appearance Clear Clear Urine Odor Normal Normal Comment pt used urinal throughout night. Had full bed incontinence episode in AM. 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 (Acute) NSTEMI (non-ST elevated myocardial infarction) (Acute) COVID (Acute) PAD (peripheral artery disease) (Acute) Onychomycosis (Acute) Vitamin B 12 deficiency (Acute) Stage 3 severe COPD by GOLD classification (Acute) Nicotine dependence (Acute) Schizophreniform disorder (Acute) Major neurocognitive disorder (Acute) Neuropathy (Acute) Knee pain, right (Acute) Arthritis (Acute) Medical History (Updated 07/31/23 @ 08:05 by SHERITA Ruff) Alcohol abuse, 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 Time Spent with Patient Time Spent with Patient: <45 minutes Time was spent: preparing to see the patient(eg.review tests), obtaining and/or reviewing separately otained hiistory, ordering medications,tests, procedures, referring, communicating with other health health care specialist, indepentently interpreting results, counseling the patient and care coordination
--- NOTE | 2023-08-01 11:32 | PDOC.CMDIS ---
Date of service: 08/01/23 Time of Service: 11:32 LACE Index Scoring Tool Questions: Length of Stay (in days): 2 Was the patient admitted via the E.D.?: Yes Comorbidities: Previous M.I. and Chronic Pulmonary Disease E.D. Visits: 1 Answers: Total Score: 9 Risk of Readmission: Low Risk Care Management Discharge Plan Reason for Hospitalization: Acute respiratory failure; Covid; Nstemi Discharge Plan: Yoshi returned home today with no new services. His niece drove him home via private vehicle. He will follow up with his PCP and discharge plan of care. He was happy to be going home today. Patient/Family Education Needs: Review discharge instructions and limitations, discussion of self care needs including ask me three.
[2023-08-02 09:58] LABS: HBs Antibody, Qual Negative (See Note); HBs Antibody, Quant <3.1 mIU/mL (See Note); Hepatitis B Core Antibody Negative (Negative); Hepatitis B surface Ag Negative (Negative); Hepatitis C Ab w Rflx HCV PCR Negative (Negative)
== END 2023-08-01 10:42 | disposition home or self-care (01) ==
LOC: ER 12:52 → MS 17:18
PROVIDERS: Admitting Provider Internal Medicine; Emergency Provider Physician Assistant; PCP Family Medicine; Visit Provider Internal Medicine
DX: J44.1 Chronic obstructive pulmonary disease with (acute) exacerbation (principal); U07.1 COVID-19; I45.2 Bifascicular block; J96.01 Acute respiratory failure with hypoxia; I73.9 Peripheral vascular disease, unspecified; F17.210 Nicotine dependence, cigarettes, uncomplicated; N30.00 Acute cystitis without hematuria; I71.43 Infrarenal abdominal aortic aneurysm, without rupture; R91.8 Other nonspecific abnormal finding of lung field; K57.30 Diverticulosis of large intestine without perforation or abscess without bleeding; E53.8 Deficiency of other specified B group vitamins; G62.9 Polyneuropathy, unspecified; B35.1 Tinea unguium; F21 Schizotypal disorder; F03.90 Unspecified dementia, unspecified severity, without behavioral disturbance, psychotic disturbance, mood disturbance, and anxiety; I21.A1 Myocardial infarction type 2
CPT/HCPCS: 00123; 36415; 71275; 80053; 80061; 82805; 83690; 84145; 86704; 86706; 86803; 87077; 87340; 87637; 93005; 94640; 96365; 96366; 96368; 96372; 96375; 96376; 99285; J1650; 74174; 80320; 81003; 81015; 82728; 83036; 83605; 83615; 83735; 83880; 84443; 84484; 85025; 85379; 85610; 85730; 87086; 87186; 93010; 94664; 94667; 94668; 94760; 99223; 99232; 99239; G0378; J0248; J0696; J1100; J2930; J7512; J7620

== ENCOUNTER → 2023-08-12 14:05 | Outpatient (BNVA) | payer MEDICARE, MEDICAID, SELFPAY | PROVIDERS: PCP Family Medicine; Referring Provider Family Medicine; Visit Provider Podiatrist | DX: B35.1 Tinea unguium (principal); G62.1 Alcoholic polyneuropathy; R20.2 Paresthesia of skin; R20.9 Unspecified disturbances of skin sensation; L65.9 Nonscarring hair loss, unspecified; L60.3 Nail dystrophy; M79.674 Pain in right toe(s); M79.675 Pain in left toe(s); R09.89 Other specified symptoms and signs involving the circulatory and respiratory systems; R60.0 Localized edema | CPT/HCPCS: 11721 ==

== ENCOUNTER → 2023-11-01 09:09 | Outpatient (BNVA) | payer MEDICARE, MEDICAID, SELFPAY | PROVIDERS: PCP Family Medicine; Referring Provider Podiatrist; Visit Provider Psychiatry & Neurology Neurology | DX: F03.90 Unspecified dementia, unspecified severity, without behavioral disturbance, psychotic disturbance, mood disturbance, and anxiety (principal); F20.81 Schizophreniform disorder; G62.9 Polyneuropathy, unspecified; E53.8 Deficiency of other specified B group vitamins | CPT/HCPCS: 99215 ==

== ENCOUNTER 2024-04-06 12:27 | Emergency (ER) | payer MEDICARE, MEDICAID, SELFPAY ==
[2024-04-06 12:29] VITALS: BP 120/87; PULSE 96; RESP 15; TEMP 36.8; O2SAT 91
--- NOTE | 2024-04-06 12:43 | ED.GENADUL_ITS ---
Discharge Plan Disposition Patient Disposition: Against Medical Advice Discharge Details Clinical Impression: Mass of left lung Primary Care Provider: Joshua Dumont ED Provider: Christian Cordoba Home Meds and New Rx's Prescriptions: Continued ascorbic acid (vitamin C) 500 mg capsule 500 mg PO DAILY cholecalciferol (vitamin D3) 25 mcg (1,000 unit) capsule 25 mcg PO DAILY mecobalamin (vitamin B12) 10,000 mcg recon soln 1,000 mcg subcut .Q monthly capsaicin 0.1 % cream 1 applic topical TID PRN (Reason: pain relief) Qty: 60 3RF Rx Instructions: do not wash area for at least 30 min after application ketoconazole 2 % cream 1 applic topical DAILY Qty: 60 2RF albuterol sulfate 8.5 GM HFA aerosol inhaler 2 puff Inhalation PRN PRN Patient Comments: I take them every couple of hours Trelegy Ellipta 100-62.5-25 mcg blister with device 1 inh INHALATION DIRECTED Patient Comments: INHALE 1 PUFF BY MOUTH AND ITL ONCE DAILY (DME) BD Luer-Ammy Syringe 3 mL 23 x 1 syringe MISCELLANEOUS Patient Comments: USE 1 SYRINGE PER MONTH TO INJECT VITAMIN B12 Discharge Instructions Additional Instructions: You were seen in the emergency department for your foreign body sensation in the back of your throat. Your x-ray showed a mass in your lungs concerning for the possibility of pneumonia or malignancy. A chest CAT scan was ordered which you declined. You withdrew your consent for care. As we discussed if you develop shortness of breath chest pain or have any other concerns please return to emergency department. Otherwise please follow-up with your primary care provider next week. Discharge Data Discharge Date/Time-TO BE ENTERED AT DEPARTURE: 04/06/24 14:24 HPI General Date/Time Provider Initiated Documentation: 04/06/24 12:35 . HPI Narrative: MDM This is an overall well-appearing normothermic and not tachycardic 78-year-old male with generalized posterior oropharynx discomfort and history of advanced COPD but not in acute exacerbation so we will defer steroids and doxycycline. Patient is not volume overloaded to suggest acute heart failure. Similarly no unintentional weight gain. No chest pain to suggest ACS. No pain out of proportion to suggest necrotizing soft tissue infection. No trauma and equal breath sounds without pneumothorax. No wheeze to suggest exacerbation of reactive airway disease and no increased purulence of sputum. No fevers no posterior pharynx erythema to suggest strep pharyngitis so I did not swab for strep. Will check a COVID swab given increased prevalence in our community at this point in time. Good range of motion in neck so doubt retropharyngeal abscess. Uvula midline so my suspicion is low for peritonsillar abscess. Not tachycardic nor having chest pain so my suspicion is low for PE. Patient denies black or bloody stools so I am not suspicious for acute GI bleed as I did not feel that the patient requires an H&H to be checked. PET scan from [facility] [place] EMR showing linear bandlike opacification in the posterior apical left upper lobe CT appearance unchanged most suggestive of area of scarring. Patient did have a 35 mm infrarenal AAA. No abdominal pain or syncope to suggest ruptured AAA. Will reassess following x-ray. 2:12 PM Chest x-ray showing new 3 mm spiculated lesion lateral to the left hilum for which radiology advised CT scan. Patient elected to leave. I explained that there is a risk of pneumonia, and malignancy if he left. He understood and requested to be discharged. COVID swab negative. 1. I explained the current situation and condition to the patient. 2. I explained the recommended treatment for this condition ?CT scan 3. I explained the risk of not having the recommended treatment ?undiagnosed malignancy pneumonia 4. The patient understands this information has no questions, and repeated back this information. 5. The patient states that they need to leave and will follow-up with primary care 6. Mental status is lucid and the patient has decision-making capacity. 7. Patient is withdrawing his consent for care HPI This is an 78-year-old male with history of advanced COPD followed by pulmonology in [place] who presents with difficulty inhaling completely for the past several months. He called his physician this morning and he was directed to the emergency department. He has been using his inhaler regularly. He denies any increased purulent sputum. He denies chest pain. He is not hav ing any shortness of breath. He is not having any increased phlegm production. He reports a feeling of discomfort in the back of his throat. He has not been wheezing. He has been using his incentive spirometry. He has not had any recent falls. No fevers chills cough nor unintentional weight gain. He denies routine tobacco, ethanol, and illicits. Exam General: Well-appearing in no acute distress speaking in complete sentences. Head: Normocephalic, atraumatic. Eye: Extraocular eye movements intact. No conjunctival injection. No scleral icterus. Ear, nose, mouth, throat: Grossly normal inspection. Normal voice, handling secretions normally. No significant posterior oropharynx erythema. Neck: Trachea midline. Good range of motion of the neck. Cardiovascular: Well-perfused distal extremities. Regular rate and rhythm Respiratory: Nonlabored respiration. Clear lungs bilaterally. No stridor. No increased work of breathing. No wheezing. Gastrointestinal: Nondistended abdomen. Musculoskeletal: No significant lower extremity pitting edema. Moving all 4 extremities spontaneously. Skin: Normal for age and race, grossly normal temperature and turgor. No acute rash. Neurologic: Alert and appropriate, no apparent acute deficits. Psychiatric: Mood and manner are appropriate. Grooming and personal hygiene are appropriate. Related Data Home Medications ?Medication ?Instructions ?Recorded ?Confirmed albuterol sulfate 90 mcg/actuation 2 puff inhalation PRN PRN 05/28/13 04/06/24 aerosol inhaler fluticasone fur. 100 mcg-umeclid 1 inh inhalation DIRECTED 01/22/20 04/06/24 62.5 mcg-vilant 25 mcg inhalat.powder (Trelegy Ellipta) ascorbic acid (vitamin C) 500 mg 500 mg PO DAILY 03/30/23 04/06/24 capsule cholecalciferol (vitamin D3) 25 25 mcg PO DAILY 03/30/23 04/06/24 mcg (1,000 unit) capsule syringe with needle 3 mL 23 x 1 05/08/23 05/08/23 (BD Luer-Ammy Syringe) capsaicin 0.1 % topical cream 1 applic topical TID PRN pain 08/12/23 04/06/24 relief #60 grams ketoconazole 2 % topical cream 1 applic topical DAILY #60 grams 08/12/23 04/06/24 mecobalamin (vitamin B12) 10,000 1,000 mcg subcut .Q monthly 08/12/23 04/06/24 mcg solution for injection Previous Rx's ?Medication ?Instructions ?Recorded capsaicin 0.1 % topical cream 1 applic topical TID PRN pain 08/12/23 relief #60 grams ketoconazole 2 % topical cream 1 applic topical DAILY #60 grams 08/12/23 Allergies Allergy/AdvReac Type Severity Reaction Status Date / Time erythromycin base AdvReac Intermediate Nausea Unverified 04/06/24 12:50 (Erythromycin Base) General Stated Complaint: RespSymp ASH: 4 Course Vital Signs Vital signs: Vital Signs Temperature 36.8 C 04/06/24 12:29 Pulse 96 H 04/06/24 12:29 Respiratory Rate 15 04/06/24 12:29 Blood Pressure 120/87 04/06/24 12:29 Pulse Oximetry 91 L 04/06/24 12:29 Temperature 36.8 C 04/06/24 12:29 Pulse 96 H 04/06/24 12:29 Respiratory Rate 15 04/06/24 12:29 Blood Pressure 120/87 04/06/24 12:29 Blood Pressure Position Sitting 04/06/24 12:29 Pulse Oximetry 91 L 04/06/24 12:29 Oxygen Delivery Method Room Air 04/06/24 12:29 Oxygen Flow Rate 0 04/06/24 12:29 Procedures Laryngoscopy Sedation/Analgesia: cetacaine spray and viscous lidocaine Technique: video laryngoscope (Flexible nasal laryngoscopy) Findings: normal larynx, normal epiglottis, no soft tissue swelling, normal vocal cords, no foreign body and normal vocal cord function Complications: none Post-procedure exam: awake, alert, normal BP, normal HR and normal O2 sat Medical Decision Making Quality:SDOH Health Related Social Needs: No Data to Display PFSH All Active Problems (Updated 04/06/24 @ 14:13 by Christian Cordoba MD) Mass of left lung (Acute) Neuropathy, alcoholic (Acute) Lung nodule, multiple (Acute) Infrarenal abdominal aortic aneurysm (AAA) without rupture (Acute) 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 (Acute) NSTEMI (non-ST elevated myocardial infarction) (Acute) PAD (peripheral artery disease) (Acute) Onychomycosis (Acute) Vitamin B 12 deficiency (Acute) Stage 3 severe COPD by GOLD classification (Acute) Nicotine dependence (Acute) Schizophreniform disorder (Acute) Major neurocognitive disorder (Acute) Neuropathy (Acute) Knee pain, right (Acute) Arthritis (Acute) Medical History Alcohol abuse, 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 COPD (chronic obstructive pulmonary disease) Surgical History Repair of inguinal hernia Right Colonoscopy - IV Sedation Family History Other Diabetes Heart disease Hyperlipidemia Hypertension Social History Smoking/Tobacco Use Status: Former Tobacco Use Quit Date: 07/02/22 Smoking risk assessment performed?: Yes Alcohol Intake: never Drug use: Never Substance use type: does not use Household members: family Housing: house Current gender identity: male Do you feel safe at home: Yes Do you feel safe in your relationship?: Yes Additional Social history: has caregiver does not leave the house
[2024-04-06 12:49] VITALS: BP 120/87; PULSE 96; RESP 15; TEMP 36.8; O2SAT 91
--- NOTE | 2024-04-06 13:20 | DI.RAD_ITS ---
Exam(s) XR CHEST 2V PA LATERAL EXAM: XR CHEST 2V PA LATERAL CLINICAL HISTORY: difficultly exhaling TECHNIQUE: 2D digital imaging was performed of the chest. Two images were obtained. PA and lateral views were obtained. COMPARISON: CR CHEST 2 VIEWS PA,LAT from 01/26/[address] THORAX ABD/PEL CTA from 07/30/2023 FINDINGS: MEDIASTINUM: Normal. HEART: Normal. PULMONARY VASCULATURE: Normal. LUNGS: There is a 3 cm spiculated lesion lateral to the left hilum. This is not present on the CT sc an from 07/30/2023. The lungs are hyperinflated with flattened diaphragms consistent with underlying COPD. There is a question of a cystic lesion lateral to the left heart border. This may represent a bulla as the patient does have emphysematous changes. There is no thick wall or air-fluid level pre sent. The lungs are otherwise clear. PLEURAL SPACE: No pleural effusion or pneumothorax. BONE:Within normal limits for the patient's age. OTHER FINDINGS:Normal. IMPRESSION: New 3 cm spiculated lesion lateral to the left hilum. Differential considerations include pulmonary mass, pneumonia or focal atelectasis. CT scan of the chest is recommended for further evaluation. DATA REPOSITORY: RADIATION DOSE DELIVERED:
[2024-04-06] MEDS: Lidocaine 2% Jelly 11 ML SYR UR (13:47)
[2024-04-06 13:52] VITALS: O2SAT 93
[2024-04-06 14:24] VITALS: BP 150/69; PULSE 79; O2SAT 95
== END 2024-04-06 14:24 | disposition left against medical advice (07) ==
PROVIDERS: Emergency Provider Emergency Medicine; PCP Family Medicine
DX: R06.02 Shortness of breath (principal); R07.0 Pain in throat; R91.8 Other nonspecific abnormal finding of lung field
CPT/HCPCS: 31575; 99284; 71046; 99283

== ENCOUNTER → 2024-05-01 09:48 | Outpatient (BNVA) | payer MEDICARE, MEDICAID, SELFPAY | PROVIDERS: PCP Family Medicine; Referring Provider Family Medicine; Visit Provider Psychiatry & Neurology Neurology | DX: G62.9 Polyneuropathy, unspecified (principal); F03.90 Unspecified dementia, unspecified severity, without behavioral disturbance, psychotic disturbance, mood disturbance, and anxiety; F20.81 Schizophreniform disorder; E53.8 Deficiency of other specified B group vitamins | CPT/HCPCS: 99215 ==

== ENCOUNTER → 2024-08-07 12:21 | Outpatient (BNVA) | payer MEDICARE, MEDICAID, SELFPAY | PROVIDERS: PCP Family Medicine; Referring Provider Family Medicine; Visit Provider Psychiatry & Neurology Neurology | DX: F20.81 Schizophreniform disorder (principal); F03.90 Unspecified dementia, unspecified severity, without behavioral disturbance, psychotic disturbance, mood disturbance, and anxiety; G62.9 Polyneuropathy, unspecified; E53.8 Deficiency of other specified B group vitamins | CPT/HCPCS: 99214 ==

== ENCOUNTER 2024-09-18 09:03 | Emergency (ER) | payer MEDICARE, MEDICAID, SELFPAY ==
[2024-09-18 09:16] VITALS: BP 152/101; PULSE 94; RESP 16; TEMP 36.5; O2SAT 95
--- NOTE | 2024-09-18 10:32 | W.ED.GENAD ---
Discharge Plan Disposition Patient Disposition: Home Condition: Stable Discharge Details Clinical Impression: Sialadenitis Primary Care Provider: Joshua Dumont ED Provider: Jose Alfredo De La Torre Home Meds and New Rx's Prescriptions: New amoxicillin-pot clavulanate 875-125 mg tablet 1 tab PO BID 14 Days Qty: 28 0RF Continued ascorbic acid (vitamin C) 500 mg capsule 500 mg PO DAILY cholecalciferol (vitamin D3) 25 mcg (1,000 unit) capsule 25 mcg PO DAILY mecobalamin (vitamin B12) 10,000 mcg recon soln 1,000 mcg subcut .Q monthly capsaicin 0.1 % cream 1 applic topical TID PRN (Reason: pain relief) Qty: 60 3RF Rx Instructions: do not wash area for at least 30 min after application ketoconazole 2 % cream 1 applic topical DAILY Qty: 60 2RF triamcinolone acetonide 0.1 % cream 1 applic topical BID cyanocobalamin (vitamin B-12) 1,000 mcg/mL solution 1,000 mcg subcut QMONTH (DME) Oxygen Tank See Rx Instructions .Route Rx Instructions: As directed (DME) BD Luer-Ammy Syringe 3 mL 21 gauge x 1 syringe See Rx Instructions .ROUTE .MEDSUPPLY Qty: 1 Patient Comments: USE 1 SYRINGE DIRECTED ONCE A MONTH TO INJECT VITAMIN B12. Rx Instructions: As directed betamethasone dipropionate 0.05 % ointment topical Patient Comments: APPLY TOPICALLY TO AFFECTED RASH AREAS TWO TIMES A DAY Atrovent HFA 17 mcg/actuation HFA aerosol inhaler 2 puff inhalation Q8H PRN Trelegy Ellipta 100-62.5-25 mcg blister with device 1 inh INHALATION DIRECTED Patient Comments: INHALE 1 PUFF BY MOUTH AND ITL ONCE DAILY (DME) BD Luer-Ammy Syringe 3 mL 23 x 1 syringe MISCELLANEOUS Patient Comments: USE 1 SYRINGE PER MONTH TO INJECT VITAMIN B12 Discharge Instructions Instructions: Amoxicillin and Clavulanate, Salivary Gland Infection Additional Instructions: You were seen in the emergency department for your neck pain and swelling primarily on the left side, the CT scan shows that you have some likely infection around your left submandibular gland this is a salivary gland, you need to take the prescribed antibiotic sent to [facility] in [place]-the pharmacy in [place] cannot fill like you prescriptions today. Take this as directed. Please use therapeutic dosing of Tylenol (acetamenophen) & Advil (ibuprofen) in an alternating fashion as follows: Take 1000mg of Tylenol every 6 hours without missing doses- that is 4 times per day. Fdc in between the Tylenol dosings, take 400-600mg of Advil also on a 6 hour schedule, that is also 4 times per day. The daily maximum dosing of Tylenol is 4000mg, and the daily maximum dosing of Advil is 2400mg. This is safe to do for weeks. Please note that some common cold medications & prescription pain medications may contain acetamenophen and you need to read OTC drug labels and factor that in to maximum daily dosings. For symptomatic relief please use candies like lemon drops, these encourage salivation and clear the gland of its secretions which will help resolve the infection sooner, sometimes this is due to a salivary gland stone sometimes this needs surgical drainage, please follow-up with a referral to ENT for your primary care provider should you experience any acute complications, please return to the emergency department for severe increase in swelling, redness, inability to open or close the jaw, inability to tolerate p.o. intake, fever. Referrals: [facility] [Provider Group] Joshua Dumont [Primary Care Provider] - Discharge Data Discharge Date/Time-TO BE ENTERED AT DEPARTURE: 09/18/24 13:18 HPI General Date/Time Provider Initiated Documentation: 09/18/24 09:24. HPI Narrative: 79 year-old male presents to ED today by POV/ambulating with a chief complaint of swollen glands to L side of face/throat, feels his gums are sore, with onset ongoing for two weeks or more. Quality described as generalized throat pain- denies dysphagia, tolerating PO, no radiation to overt swelling/erythema, fever, dry mouth, nausea/vomiting, sore throat, cough, shortness of breath, chest pain. Severity is described as mild. Palliating factors include nothing specific attempted. Provoking factors include nothing specific. Events leading up to the incident/Associated Symptoms: Patient has been to multiple doctors/tele-health about this issue. Patient not anticoagulated. Related Data Home Medications ?Medication ?Instructions ?Recorded ?Confirmed fluticasone fur. 100 mcg-umeclid 1 inh inhalation DIRECTED 01/22/20 08/07/24 62.5 mcg-vilant 25 mcg inhalat.powder (Trelegy Ellipta) ascorbic acid (vitamin C) 500 mg 500 mg PO DAILY 03/30/23 08/07/24 capsule cholecalciferol (vitamin D3) 25 25 mcg PO DAILY 03/30/23 08/07/24 mcg (1,000 unit) capsule syringe with needle 3 mL 23 x 1 05/08/23 08/07/24 (BD Luer-Ammy Syringe) capsaicin 0.1 % topical cream 1 applic topical TID PRN pain 08/12/23 08/07/24 relief #60 grams ketoconazole 2 % topical cream 1 applic topical DAILY #60 grams 08/12/23 08/07/24 mecobalamin (vitamin B12) 10,000 1,000 mcg subcut .Q monthly 08/12/23 08/07/24 mcg solution for injection cyanocobalamin (vitamin B-12) 1,000 mcg subcut QMONTH 05/01/24 08/07/24 1,000 mcg/mL injection solution triamcinolone acetonide 0.1 % 1 applic topical BID 05/01/24 08/07/24 topical cream Oxygen 08/07/24 08/07/24 betamethasone dipropionate 0.05 % applic topical 09/15/24 topical ointment ipratropium bromide 17 2 puff inhalation Q8H PRN 09/15/24 mcg/actuation HFA aerosol inhaler (Atrovent HFA) syringe with needle 3 mL 21 gauge #1 ea 09/15/24 x 1 (BD Luer-Ammy Syringe) amoxicillin 875 mg-potassium 1 tab PO BID 14 days #28 tabs 09/18/24 clavulanate 125 mg tablet Previous Rx's ?Medication ?Instructions ?Recorded capsaicin 0.1 % topical cream 1 applic topical TID PRN pain 08/12/23 relief #60 grams ketoconazole 2 % topical cream 1 applic topical DAILY #60 grams 08/12/23 amoxicillin 875 mg-potassium 1 tab PO BID 14 days #28 tabs 09/18/24 clavulanate 125 mg tablet Allergies Allergy/AdvReac Type Severity Reaction Status Date / Time erythromycin base AdvReac Intermediate Nausea Unverified 08/07/24 10:20 (Erythromycin Base) azithromycin AdvReac Unknown vomiting Verified 08/07/24 10:20 General Stated Complaint: DentalOral ASH: 4 Review of Systems All systems reviewed & are unremarkable except as noted in HPI and below Exam Narrative Exam Narrative: GENERAL APPEARANCE: Well-nourished, non-toxic, awake and alert, atraumatic, no acute distress. SKIN: Warm, pink, dry, intact, without rashes/lesions/ulcerations. HEAD: Normocephalic, atraumatic, normal hair distribution for gender/age. EYES: Normal conjunctiva, no exudates on lids/lashes. ENT: Nares patent, no circumoral cyanosis, no facial swelling, mild lymphadenopathy to left tonsillar/submandibular region, no significant parotid gland swelling, no erythema to face, uvula midline, benign posterior oropharynx, tolerating p.o., no trismus, no vocal changes NECK: Supple, trachea midline, painless cervical ROM. LUNGS/CHEST: Non-labored respirations, normal A/P diameter, symmetrical expansion, no chest wall deformity HEART (CV/PV): No peripheral edema, no JVD. ABDOMEN: Soft, non-distended, no guarding. MSK: Normal ROM, no swelling/deformity to bilateral UEs or LEs, moving all extremities without weakness, no cyanosis, spine midline without tenderness, normal curvature. NEURO: Mental Status AAOx4 - alert to person, place, time, events No facial droop, no forehead involvement. Motor: No focal weakness - strength 5/5 in bilateral UEs and LEs, proximal and distal, symmetric. Sensory: sensation intact to light touch globally. Gait normal: patient ambulated without ataxia into ED room. PSYCH: euthymic, cooperative, pleasant, appropriate speech Course Vital Signs Vital signs: Vital Signs Temperature 36.5 C 09/18/24 09:16 Pulse 94 H 09/18/24 09:16 Respiratory Rate 16 09/18/24 09:16 Blood Pressure 152/101 H 09/18/24 09:16 Pulse Oximetry 95 09/18/24 09:16 Temperature 36.5 C 09/18/24 09:16 Temperature Source Oral 09/18/24 09:16 Pulse 94 H 09/18/24 09:16 Respiratory Rate 16 09/18/24 09:16 Blood Pressure 152/101 H 09/18/24 09:16 Blood Pressure Position Sitting 09/18/24 09:16 Pulse Oximetry 95 09/18/24 09:16 Oxygen Delivery Method Room Air 09/18/24 09:16 Oxygen Flow Rate 0 09/18/24 09:16 Pain Level 0 09/18/24 09:16 Medical Decision Making This dictation utilizes [id number] dictation software and may contain unedited grammatical errors. 79 year-old male presents to ED today by POV/ambulating with a chief complaint of swollen glands to L side of face/throat, feels his gums are sore, with onset ongoing for two weeks or more. Quality described as generalized throat pain- denies dysphagia, tolerating PO, no radiation to overt swelling/erythema, fever, dry mouth, nausea/vomiting, sore throat, cough, shortness of breath, chest pain. Severity is described as mild. Palliating factors include nothing specific attempted. Provoking factors include nothing specific. Events leading up to the incident/Associated Symptoms: Patient has been to multiple doctors/tele-health about this issue. Patients' medical history: Alcohol abuse in remission, COPD, alcoholic neuropathy, right bundle branch block, NSTEMI, schizophreniform disorder. Family and social history: Noncontributory. Pertinent exam findings / vital signs include left-sided facial and cervical lymphadenopathy without erythema, no firmness to lymph nodes, most prominent left submandibular, benign posterior oropharynx uvula midline, nontoxic vitals, tolerating p.o. intake, afebrile, some tenderness to light touch at right parietal scalp. Differential / pathologies of concern include viral syndrome, lymphadenopathy, unlikely PROSECUTING ATTORNEY/RPA, low likelihood temporal arteritis, sialadenitis, sialolithiasis, parotitis. Diagnostic studies of: -CBC, CMP, CRP/ESR, rapid strep, CT neck with contrast. -CBC shows mild leukocytosis without left shift -CRP is 15.8, ESR is mildly elevated at 29 likely in the setting of findings of CT -CT shows left submandibular lymphadenopathy likely sial adenitis -Rapid strep negative -No actionable abnormality on CMP Interventions of: -Rx for Augmentin recommend PCP referral to ENT. ED Course/Assessment/Plan: 79-year-old male has left cervical and submandibular lymphadenopathy with findings of sialoadenitis likely on CT, has leukocytosis and elevation of inflammatory markers but I do not suspect any temporal arteritis at this time as most likely cause is sialadenitis. I recommend sialagogues like lemon had candies and started him on Augmentin, there is no visible stone on the CT study, I did grief counsellor him that there is a possibility that this condition can lead to surgical intervention by ENT but hopeful that it will resolve with antibiotics. Counseled patient on therapeutic dosing of Tylenol and ibuprofen, strict return criteria for any trismus, vocal changes, inability to tolerate p.o. intake, developing large redness or swelling, recommend PCP referral to ENT. Findings not consistent with airway compromise, deep space infection, inability to tolerate p.o. intake, sepsis. Disposition of sialadenitis. Patient verbalized understanding of the plan and return to ED criteria and engaged in shared decision making. Medical Records Medical records reviewed: Yes I reviewed the patient's medical records. Imaging Data Radiologic Study: Attestation: I personally reviewed and interpreted this imaging study as follows: Imaging: CT Scan Radiologist's impression: EXAM: CT NECK W CLINICAL HISTORY: L neck pain, lymphadenopathy. TECHNIQUE: Imaging Protocol: Axial computed tomography images with coronal and sagittal reformatted images were created and reviewed. CONTRAST MATERIAL: Intravenous: Omnipaque 350 Contrast volume:100mL COMPARISON: CT HEAD WITHOUT CONTRAST from 01/26/[address] Chest wo/c from 04/10/2024 FINDINGS: The examination is limited due to patient motion artifact. Visualized intracranial structures: Within normal limits. Orbits and orbital soft tissues: Within normal limits. Visualized paranasal sinuses: Within normal limits. Nasopharynx: Within normal limits. Oropharynx: Within normal limits. Hypopharynx: Within normal limits. Larynx: Within normal limits. Retropharyngeal space: Within normal limits. Parotids/submandibular: The left submandibular gland is enlarged compared to the right. There is mild stranding in the soft tissues of the left submandibular region. There is infiltration of the soft tissues over the left cheek. No focal fluid collection is seen to suggest an abscess. The right submandibular gland and the parotid glands are unremarkable. Thyroid gland: Within normal limits. Lymphadenopathy: There is scattered lymph nodes seen along the level one to level three all measuring less than 8 mm in short axis diameter which are physiologic in nature. Trachea: Within normal limits. Lung apices: Marked emphysematous changes are present in the lung apices. There is stable nodularity in the left upper lobe. Bones: Within normal limits for the patient's age. Carotids/Jugular: Within normal limits. Soft tissues: Within normal limits. IMPRESSION: Mild enlargement of the left submandibular gland compared to the right with mild stranding in the surrounding soft tissues. No focal fluid collection is seen to suggest an abscess. This may represent sialadenitis. Lab Data Lab results reviewed: Yes I reviewed the patient's lab results. Labs: 09/18/24 10:20 Tonsil - Not Specified Group A Streptococcus Culture - Pending Laboratory Tests Range/Units 09/18/24 10:20 WBC (4.4-10.8) 10^3/uL 13.60 H RBC (4.36-5.78) 10^6/uL 5.32 Hgb (13.5-17.5) g/dL 15.6 Hct (40.0-50.0) % 48.2 MCV (80-95) fL 91 MCH (27.0-33.0) pg 29.3 MCHC (32.0-36.0) % 32.4 RDW (11.8-14.1) % 13.6 Plt Count (130-400) 10^3/uL 363 MPV (8.0-11.0) fL 8.7 Immature Gran % % 0.7 Neutrophils % % 71.1 Lymphocytes % % 12.9 Monocytes % % 12.6 Eosinophils % % 1.8 Basophils % % 0.9 Nucleated RBC % (0.0-0.3) % 0.0 Absolute Neutrophils (1.2-6.7) 10^3/uL 9.67 H Absolute Lymphocytes (1.2-3.4) 10^3/uL 1.75 Absolute Monocytes (0.1-0.8) 10^3/uL 1.71 H Absolute Eosinophils (0.0-0.7) 10^3/uL 0.24 Absolute Basophils (0.0-0.2) 10^3/uL 0.12 RBC Morphology Normal ESR (0-20) mm/hr 29 H Sodium (136-145) mmol/L 138 Potassium (3.5-5.1) mmol/L 4.2 Chloride (98-107) mmol/L 101 Carbon Dioxide (21.0-32.0) mmol/L 28.3 Anion Gap (3-11) mmol/L 8.7 BUN (7-18) mg/dL 13 Creatinine (0.70-1.30) mg/dL 1.0 Est GFR (CKD-EPI 2020) (mL/min/1.73m2) 75.61 Glucose (74-106) mg/dL 101 Calcium (8.5-10.1) mg/dL 9.6 Total Bilirubin (0.2-1.0) mg/dL 0.98 AST (15-37) U/L 17 ALT (16-63) U/L 30 Alkaline Phosphatase (46-116) U/L 123 H C-Reactive Protein (<or=0.5) mg/dL 15.84 H Total Protein (6.4-8.2) g/dL 7.9 Albumin (3.4-5.0) g/dL 3.6 Quality:SDOH Health Related Social Needs: No Data to Display PFSH All Active Problems (Updated 09/18/24 @ 12:25 by SHERITA Milian) Sialadenitis (Acute) Emphysema, unspecified (Acute) Shoulder pain, left (Acute) Hypoxemia (Acute) Hip pain, right (Acute) Lower back pain (Acute) Neuropathy, alcoholic (Acute) Lung nodule, multiple (Acute) Infrarenal abdominal aortic aneurysm (AAA) without rupture (Acute) 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 (Acute) NSTEMI (non-ST elevated myocardial infarction) (Acute) PAD (peripheral artery disease) (Acute) Onychomycosis (Acute) Vitamin B 12 deficiency (Acute) Stage 3 severe COPD by GOLD classification (Acute) Nicotine dependence (Acute) Schizophreniform disorder (Acute) Major neurocognitive disorder (Acute) Neuropathy (Acute) Knee pain, right (Acute) Arthritis (Acute) Medical History Alcohol abuse, 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 COPD (chronic obstructive pulmonary disease) Surgical History Repair of inguinal hernia Right Colonoscopy - IV Sedation Family History Father ETOHism Schizophrenia Paternal Grandfather ETOHism Schizophrenia Other Diabetes Heart disease Hyperlipidemia Hypertension Social History Smoking/Tobacco Use Status: Former Tobacco Use Quit Date: 07/02/23 Smoking risk assessment performed?: Yes Alcohol Intake: never Drug use: Never Substance use type: does not use Household members: family Housing: house Current gender identity: male Do you feel safe at home: Yes Do you feel safe in your relationship?: Yes Additional Social history: has caregiver does not leave the house
[2024-09-18 10:37] LABS: Abs Immature Grans 0.09 10^3/uL (0.0-0.06); Absolute Basophil Count 0.12 10^3/uL (0.0-0.2); Absolute Lymphocyte Count 1.75 10^3/uL (1.2-3.4); Absolute Neutrophil Count 9.67 10^3/uL (1.2-6.7); Basophils % 0.9 %; Eosinophils % 1.8 %; HCT 48.2 % (40.0-50.0); HGB 15.6 g/dL (13.5-17.5); Immature Grans % 0.7 %; Lymphocytes % 12.9 %; MCH 29.3 pg (27.0-33.0); MCHC 32.4 % (32.0-36.0); MCV 91 fL (80-95); MPV 8.7 fL (8.0-11.0); Monocytes % 12.6 %; Neutrophils % 71.1 %; Platelet Count 363 10^3/uL (130-400); RBC 5.32 10^6/uL (4.36-5.78); RDW 13.6 % (11.8-14.1); RDW-SD 45.5 fL
[2024-09-18 10:40] LABS: Absolute Eosinophil Count 0.24 10^3/uL (0.0-0.7); Absolute Monocyte Count 1.71 10^3/uL (0.1-0.8)
[2024-09-18 10:41] LABS: ESR 29 mm/hr (0-20)
[2024-09-18 10:58] LABS: ALT 30 U/L (16-63); AST 17 U/L (15-37); Albumin 3.6 g/dL (3.4-5.0); Alkaline Phosphatase 123 U/L (46-116); Anion Gap 8.7 mmol/L (3-11); BUN 13 mg/dL (7-18); Bilirubin, Total 0.98 mg/dL (0.2-1.0); C-Reactive Protein 15.84 mg/dL (<or=0.5); CO2 28.3 mmol/L (21.0-32.0); Calcium 9.6 mg/dL (8.5-10.1); Chloride 101 mmol/L (98-107); Estimated GFR 75.61 (mL/min/1.73m2); Glucose 101 mg/dL (74-106); Potassium 4.2 mmol/L (3.5-5.1); Sodium 138 mmol/L (136-145); Total Protein 7.9 g/dL (6.4-8.2)
[2024-09-18 11:11] LABS: Diff Comment Diff Reviewed; RBC Morphology Normal
[2024-09-18] MEDS: Omnipaque 350 MG/ML 100 ML BTL IJ (11:17)
[2024-09-18] MEDS: Normal Saline - Diluent 50 ML VIAL IJ (11:18)
--- NOTE | 2024-09-18 11:30 | DI.CT_ITS ---
Exam(s) CT NECK W EXAM: CT NECK W CLINICAL HISTORY: L neck pain, lymphadenopathy. TECHNIQUE: Imaging Protocol: Axial computed tomography images with coronal and sagittal reformatted images were created and reviewed. CONTRAST MATERIAL: Intravenous: Omnipaque 350 Contrast volume:100mL COMPARISON: CT HEAD WITHOUT CONTRAST from 01/26/[address] Chest wo/c from 04/10/2024 FINDINGS: The examination is limited due to patient motion artifact. Visualized intracranial structures: Within normal limits. Orbits and orbital soft tissues: Within normal limits. Visualized paranasal sinuses: Within normal limits. Nasopharynx: Within normal limits. Oropharynx: Within normal limits. Hypopharynx: Within normal limits. Larynx: Within normal limits. Retropharyngeal space: Within normal limits. Parotids/submandibular: The left submandibular gland is enlarged compared to the right. There is mi ld stranding in the soft tissues of the left submandibular region. There is infiltration of the soft tissues over the left cheek. No focal fluid collection is seen to suggest an abscess. The right garcia bmandibular gland and the parotid glands are unremarkable. Thyroid gland: Within normal limits. Lymphadenopathy: There is scattered lymph nodes seen along the level one to level three all measurin g less than 8 mm in short axis diameter which are physiologic in nature. Trachea: Within normal limits. Lung apices: Marked emphysematous changes are present in the lung apices. There is stable nodularit y in the left upper lobe. Bones: Within normal limits for the patient's age. Carotids/Jugular: Within normal limits. Soft tissues: Within normal limits. IMPRESSION: Mild enlargement of the left submandibular gland compared to the right with mild stranding in the roly rounding soft tissues. No focal fluid collection is seen to suggest an abscess. This may represent sialadenitis. RADIATION DOSE DELIVERED: 397.55mGy.cm Total DLP 397.55mGy.cm Total DLP DATA REPOSITORY: All CT scans at this facility are submitted to the National Radiology Data Registry (NRDR) Dose Index Registry (DIR) with the [employer] ([employer]). RADIATION OPTIMIZATION: All CT scans at this facility use at least one of these dose optimization te chniques: automated exposure control; mA and/or kV adjustment per patient size (includes targeted exa ms where dose is matched to clinical indication); or iterative reconstruction.
[2024-09-18 11:44] VITALS: BP 152/100; PULSE 90; RESP 20; TEMP 36.6; O2SAT 100
[2024-09-18 12:40] VITALS: BP 130/90; PULSE 92; RESP 22; TEMP 36.9; O2SAT 94
[2024-09-18 13:11] VITALS: BP 130/90; PULSE 92; RESP 22; TEMP 36.9; O2SAT 94
--- NOTE | 2024-09-19 05:57 | NUR.NOTE ---
Patient seen 09/18/24, called with questions about treatment. Call turfed to charge nurse.Nursing Note:
--- NOTE | 2024-09-23 14:04 | NUR.NOTE ---
Nursing Note:Pt called stating that he has been getting very bad headaches after he takes his tylenol and is concerned that it might be the tylenol that is causing them but is not sure. He asked that if it would be okay to stop taking the IBU and APAP for 6 hours and then start up the sequence again. I told him that this would be fine but he needed to pay extra special attention after he took the tylenol. If he again experiences a headache after taking it then he should just stop taking the tylenol and stick with the ibuprofen every 6 hours as needed for his pain. Pt vocalized understanding my instructions and plans on doing just as we discussed.
== END 2024-09-18 13:18 | disposition home or self-care (01) ==
PROVIDERS: Emergency Provider Physician Assistant; PCP Family Medicine
DX: K11.20 Sialoadenitis, unspecified (principal)
CPT/HCPCS: 36415; 70491; 80053; 85652; 87880; 99285; 85025; 86140; 87081; 99284; J3490

== ENCOUNTER 2024-09-24 02:46 | Emergency (ER) | payer MEDICARE, MEDICAID, SELFPAY ==
[2024-09-24 02:48] VITALS: BP 165/106; PULSE 97; RESP 16; TEMP 37.1; O2SAT 95
--- NOTE | 2024-09-24 03:00 | DI.CT_ITS ---
Exam(s) CT HEAD WO EXAM: CT HEAD WO CLINICAL HISTORY: headache. TECHNIQUE: Imaging Protocol: Axial computed tomography images with coronal and sagittal reformatted images were created and reviewed COMPARISON: CT HEAD WITHOUT CONTRAST from 01/26/2014 FINDINGS: Ventricles and Extra axial spaces: Normal in size and morphology for the patient's age. Hemorrhage: None. Cerebral parenchyma: The dense of an acute territorial infarct. No acute mass effect. Midline shift: None. Brainstem/Cerebellum: Normal. Calvarium: Normal. Visualized Paranasal sinuses/Mastoids: Clear. Soft Tissues: Unremarkable. IMPRESSION: No acute intracranial process. RADIATION DOSE DELIVERED: 892.72mGy.cm Total DLP DATA REPOSITORY: All CT scans at this facility are submitted to the National Radiology Data Registry (NRDR) Dose Index Registry (DIR) with the [employer] (ACR). RADIATION OPTIMIZATION: All CT scans at this facility use at least one of these dose optimization te chniques: automated exposure control; mA and/or kV adjustment per patient size (includes targeted exa ms where dose is matched to clinical indication); or iterative reconstruction.
--- NOTE | 2024-09-24 03:00 | NUR.NOTE ---
Nursing Note: pt states he is not taking any pain meds, but then is talking about taking Tylenol and Motrin and calling the ED to speak to a nurse about taking tylenol and that he stated it is causiing his headache and cannot sleep. the pt states he is unsure if any drugs are safe to take
--- NOTE | 2024-09-24 03:08 | ED.GENADUL_ITS ---
Discharge Plan Disposition Patient Disposition: Home Condition: Improving Discharge Details Clinical Impression: Acute rhinosinusitis Primary Care Provider: Joshua Dumont ED Provider: Wilder Burns [place] Meds and New Rx's Prescriptions: Continued ascorbic acid (vitamin C) 500 mg capsule 500 mg PO DAILY cholecalciferol (vitamin D3) 25 mcg (1,000 unit) capsule 25 mcg PO DAILY mecobalamin (vitamin B12) 10,000 mcg recon soln 1,000 mcg subcut .Q monthly capsaicin 0.1 % cream 1 applic topical TID PRN (Reason: pain relief) Qty: 60 3RF Rx Instructions: do not wash area for at least 30 min after application ketoconazole 2 % cream 1 applic topical DAILY Qty: 60 2RF triamcinolone acetonide 0.1 % cream 1 applic topical BID cyanocobalamin (vitamin B-12) 1,000 mcg/mL solution 1,000 mcg subcut QMONTH (DME) BD Luer-Ammy Syringe 3 mL 21 gauge x 1 syringe See Rx Instructions .ROUTE .MEDSUPPLY Qty: 1 Patient Comments: USE 1 SYRINGE DIRECTED ONCE A MONTH TO INJECT VITAMIN B12. Rx Instructions: As directed betamethasone dipropionate 0.05 % ointment 1 applic topical BID Patient Comments: APPLY TOPICALLY TO AFFECTED RASH AREAS TWO TIMES A DAY Atrovent HFA 17 mcg/actuation HFA aerosol inhaler 2 puff inhalation Q8H PRN Trelegy Ellipta 100-62.5-25 mcg blister with device 1 inh INHALATION DIRECTED Patient Comments: INHALE 1 PUFF BY MOUTH AND ITL ONCE DAILY (DME) BD Luer-Ammy Syringe 3 mL 23 x 1 syringe MISCELLANEOUS Patient Comments: USE 1 SYRINGE PER MONTH TO INJECT VITAMIN B12 amoxicillin-pot clavulanate 875-125 mg tablet 1 tab PO BID 14 Days Qty: 28 0RF Discharge Instructions Instructions: Sinusitis, Adult ED, Sinus Headache (DC) Discharge Data Discharge Physician: Wilder Burns [facility] General Date/Time Provider Initiated Documentation: 09/24/24 03:07 . HPI Narrative: Presents emergency department complaining of left frontal headache also reports sinus congestion denies fever denies chills denies cough or muscle aches Related Data Home Medications ?Medication ?Instructions ?Recorded ?Confirmed fluticasone fur. 100 mcg-umeclid 1 inh inhalation DIRECTED 01/22/20 09/24/24 62.5 mcg-vilant 25 mcg inhalat.powder (Trelegy Ellipta) ascorbic acid (vitamin C) 500 mg 500 mg PO DAILY 03/30/23 09/24/24 capsule cholecalciferol (vitamin D3) 25 25 mcg PO DAILY 03/30/23 09/24/24 mcg (1,000 unit) capsule syringe with needle 3 mL 23 x 1 05/08/23 09/24/24 (BD Luer-Ammy Syringe) capsaicin 0.1 % topical cream 1 applic topical TID PRN pain 08/12/23 09/24/24 relief #60 grams ketoconazole 2 % topical cream 1 applic topical DAILY #60 grams 08/12/23 09/24/24 mecobalamin (vitamin B12) 10,000 1,000 mcg subcut .Q monthly 08/12/23 09/24/24 mcg solution for injection cyanocobalamin (vitamin B-12) 1,000 mcg subcut QMONTH 05/01/24 09/24/24 1,000 mcg/mL injection solution triamcinolone acetonide 0.1 % 1 applic topical BID 05/01/24 09/24/24 topical cream betamethasone dipropionate 0.05 % 1 applic topical BID 09/15/24 09/24/24 topical ointment ipratropium bromide 17 2 puff inhalation Q8H PRN 09/15/24 09/24/24 mcg/actuation HFA aerosol inhaler (Atrovent HFA) syringe with needle 3 mL 21 gauge #1 ea 09/15/24 09/24/24 x 1 (BD Luer-Ammy Syringe) amoxicillin 875 mg-potassium 1 tab PO BID 14 days #28 tabs 09/18/24 09/24/24 clavulanate 125 mg tablet Previous Rx's ?Medication ?Instructions ?Recorded capsaicin 0.1 % topical cream 1 applic topical TID PRN pain 08/12/23 relief #60 grams ketoconazole 2 % topical cream 1 applic topical DAILY #60 grams 08/12/23 amoxicillin 875 mg-potassium 1 tab PO BID 14 days #28 tabs 09/18/24 clavulanate 125 mg tablet Allergies Allergy/AdvReac Type Severity Reaction Status Date / Time erythromycin base AdvReac Intermediate Nausea Unverified 09/24/24 02:56 (Erythromycin Base) azithromycin AdvReac Unknown vomiting Verified 09/24/24 02:56 General Stated Complaint: Headache ASH: 3 Review of Systems Narrative: Review of Systems: Constitutional: No fevers, chills, sweats Eye: No recent visual problems ENT: No ear pain, , sore throat Respiratory: No shortness of breath, cough Cardiovascular: No Chest pain, palpitations, syncope Gastrointestinal: No nausea, vomiting, diarrhea Genitourinary: No hematuria Jordan/Lymph: Negative for bruising tendency, swollen lymph glands Endocrine: Negative for excessive thirst, excessive hunger Musculoskeletal: No back pain, neck pain, joint pain, muscle pain, decreased range of motion Integumentary: No rash, pruritus, abrasions Neurologic: Alert & oriented X 4 Psychiatric: No anxiety, depression Exam Narrative Exam Narrative: Exam; vitals signs as reported above normal Constitutional; In no acute distress, afebrile General: cooperative, healthy appearing, comfortable and no acute distress HEENT: Head: normal to inspection, no palpable skull fracture and normocephalic atraumatic Eyes: : appearance normal, both eyes and all related structures EOM intact bilaterally Pupils: PERRL : conjunctiva normal Direct ophthalmoscopy: normal light reflex, normal conjunctiva, normal visual acuity Ears: Normal TM, normal external canal oropharynx hyperemic with posterior exudate and tenderness in the sinuses Nose: normal no rhinorreha Neck no JVD, supple non tender Neck: normal visual inspection, full ROM and no lymphadenopathy Chest: normal inspection of the chest Respiratory : normal respiratory effort and able to speak in complete sentences no wheezing no rales Cardio Rate: regular rate, rhythm: regular rhythm normal heart sounds S1 and S2 no murmurs, gallops, or rubs GI : normal to inspection, normal bowel sounds, soft, non tender, non distended, no organomegaly Back/Spine/ no CVA tenderness Thoracic/Lumbar Spine: no tenderness or deformities Skin no rashes or lesions Neuro: patient alert oriented x 4 and no meningeal signs, Cranial Nerves: CN's II-XI intact bilaterally, Cognition: normal cognition, Speech: speech normal, Gait: normal gait, Depp tendon reflexes normal 2+ muscle strength 5/5 bilaterally Extremities, no edema, full range of motion, normal strength : normal Rectal: Course Vital Signs Vital signs: Vital Signs Temperature 37.1 C 02/23/25 02:48 Pulse 97 H 09/24/24 02:48 Respiratory Rate 16 09/24/24 02:48 Blood Pressure 165/106 H 09/24/24 02:48 Pulse Oximetry 95 09/24/24 02:48 Temperature 37.1 C 09/24/24 02:48 Pulse 97 H 09/24/24 02:48 Respiratory Rate 16 09/24/24 02:48 Blood Pressure 165/106 H 09/24/24 02:48 Blood Pressure Position Sitting 09/24/24 02:48 Pulse Oximetry 95 09/24/24 02:48 Oxygen Delivery Method Room Air 09/24/24 02:48 Oxygen Flow Rate 0 09/24/24 02:48 Pain Level 10 09/24/24 02:48 Medical Decision Making MDM: Summary: Patient was likely with sinusitis and pharyngitis which treated with antibiotics she already taking nasal steroid. CT scan of the head was negative he received Toradol in the emergency department with improvement he will be discharged home on antibiotics probably Augmentin labs showed mild ovation of the white count but negative COVID-negative RSV Data Review Analysis All the data on this patient was reviewed by me including laboratory and imaging studies as well as bedside studies performed by me Independent review of Studies Imaging Lab: Labs show an elevation of the white count patient with sinusitis were improved with Toradol and will be discharged home on Augmentin Risk Stratification: Differential Diagnosis: 1. Rhinosinusitis pharyngitis 2. Pharyngitis 3. COVID-19 infection 4. Influenza 5. 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 (Acute) NSTEMI (non-ST elevated myocardial infarction) (Acute) PAD (peripheral artery disease) (Acute) Onychomycosis (Acute) Vitamin B 12 deficiency (Acute) Stage 3 severe COPD by GOLD classification (Acute) Nicotine dependence (Acute) Schizophreniform disorder (Acute) Major neurocognitive disorder (Acute) Neuropathy (Acute) Knee pain, right (Acute) Arthritis (Acute) Medical History Alcohol abuse, 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 COPD (chronic obstructive pulmonary disease) Surgical History Repair of inguinal hernia Right Colonoscopy - IV Sedation Family History Father ETOHism Schizophrenia Paternal Grandfather ETOHism Schizophrenia Other Diabetes Heart disease Hyperlipidemia Hypertension Social History Smoking/Tobacco Use Status: Former Tobacco Use Quit Date: 07/02/23 Smoking risk assessment performed?: Yes Alcohol Intake: never Drug use: Never Substance use type: does not use Household members: family Housing: house Current gender identity: male Do you feel safe at home: Yes Do you feel safe in your relationship?: Yes Additional Social history: has caregiver does not leave the house
[2024-09-24] MEDS: Ketorolac 30 MG/ML VIAL IVP (03:36)
[2024-09-24 03:41] LABS: Abs Immature Grans 0.13 10^3/uL (0.0-0.06); Absolute Basophil Count 0.15 10^3/uL (0.0-0.2); Absolute Eosinophil Count 0.09 10^3/uL (0.0-0.7); Absolute Lymphocyte Count 1.63 10^3/uL (1.2-3.4); Absolute Neutrophil Count 11.46 10^3/uL (1.2-6.7); Eosinophils % 0.6 %; HCT 44.6 % (40.0-50.0); HGB 14.7 g/dL (13.5-17.5); Immature Grans % 0.9 %; MCH 29.2 pg (27.0-33.0); MCV 89 fL (80-95); MPV 8.9 fL (8.0-11.0); Monocytes % 9.4 %; Neutrophils % 77.1 %; Platelet Count 399 10^3/uL (130-400); RBC 5.04 10^6/uL (4.36-5.78); RDW 13.4 % (11.8-14.1); WBC 14.86 10^3/uL (4.4-10.8)
--- NOTE | 2024-09-24 04:04 | DI.VRAD_ITS ---
PROCEDURE INFORMATION: Exam: CT Head Without Contrast Exam date and time: 09/24/2024 3:51 AM Age: 79 years old Clinical indication: Pain; Headache TECHNIQUE: Imaging protocol: Computed tomography of the head without contrast. COMPARISON: CT NECK W 09/18/2024 11:16 AM FINDINGS: Brain: Minimal chronic small vessel ischemic change.Mild generalized volume loss of the brain. No brain edema. No intracranial hemorrhage. Cerebral ventricles: No ventriculomegaly. Paranasal sinuses: Visualized sinuses are unremarkable. No fluid levels. Mastoid air cells: Unremarkable. Bones: Unremarkable. No acute fracture. Soft tissues: Unremarkable. IMPRESSION: No acute brain findings. Dictated and Authenticated by: Felipe Savage MD. Orderin Grant Hdz MD
[2024-09-24 04:05] LABS: ALT 25 U/L (16-63); AST 17 U/L (15-37); Albumin 2.8 g/dL (3.4-5.0); Alkaline Phosphatase 127 U/L (46-116); Anion Gap 15.3 mmol/L (3-11); BUN 10 mg/dL (7-18); Bilirubin, Total 0.74 mg/dL (0.2-1.0); CO2 22.7 mmol/L (21.0-32.0); CREATININE 0.8 mg/dL (0.70-1.30); Calcium 9.1 mg/dL (8.5-10.1); Chloride 96 mmol/L (98-107); Estimated GFR 88.91 (mL/min/1.73m2); Glucose 119 mg/dL (74-106); Potassium 4.2 mmol/L (3.5-5.1); Sodium 134 mmol/L (136-145); Total Protein 6.9 g/dL (6.4-8.2)
[2024-09-24 04:16] LABS: COVID-19 PCR Negative (Negative); Influenza A PCR Negative (Negative); Influenza B PCR Negative (Negative); RSV PCR Negative (Negative)
[2024-09-24 04:27] LABS: Source Nasopharynx
[2024-09-24 05:42] VITALS: PULSE 68; RESP 16; O2SAT 97
[2024-09-24 07:19] VITALS: BP 123/58; PULSE 83; RESP 16; O2SAT 95
== END 2024-09-24 08:51 | disposition home or self-care (01) ==
LOC: ER 07:28
PROVIDERS: Emergency Provider Emergency Medicine Emergency Medical Services; PCP Family Medicine
DX: J01.90 Acute sinusitis, unspecified (principal); J44.9 Chronic obstructive pulmonary disease, unspecified; I25.2 Old myocardial infarction; Z87.891 Personal history of nicotine dependence
CPT/HCPCS: 80053; 87637; 96374; 99284; 70450; 85025; J1885

== ENCOUNTER → 2025-02-05 10:44 | Outpatient (BNVA) | payer MEDICARE, MEDICAID, SELFPAY | PROVIDERS: PCP Family Medicine; Referring Provider Family Medicine; Visit Provider Psychiatry & Neurology Neurology | DX: F03.90 Unspecified dementia, unspecified severity, without behavioral disturbance, psychotic disturbance, mood disturbance, and anxiety (principal); F20.81 Schizophreniform disorder; G62.9 Polyneuropathy, unspecified; E53.8 Deficiency of other specified B group vitamins | CPT/HCPCS: 99215 ==